=== PATIENT | female | born 1940 | race African-American/Black ===

== ENCOUNTER 2021-02-20 21:47 | Inpatient (IN) | payer MEDICARE, OTHER ==
[~2021-02-20] VITALS: Ht 165.1 cm; Wt 59.4 kg
--- NOTE | 2021-02-20 21:56 | PHYS DOC ---
General Adult HPI: HPI: Patient is a 80 year old female hypothyroid, hyperlipedimia, hypertension presents for evaluation of right sided abdominal pain and constipation. Patient with recent hospitalization for COVID at [facility]-- Admitted on Jan 31 and Discharged Feb 18. Patients hospitalization was complicated with Right abdominal wall hematoma. Family choose to have patient discharged home vs rehab. Daughter states since discharge patient is not as active and with decreased appetite. Daughter seem to be mainly concerned that patient has not had a bowel movement--- stating since Jan 31 patient has had only 1 BM and she is requesting patient to be "cleaned out" Patients only complains of right sided abdominal pain. She denies any chest pain or shortness of breath. Review of Systems: Review of Systems: Constitutional: Denies fever or chills. [] Eyes: Denies change in visual acuity. [] HENT: Denies nasal congestion or sore throat. [] Respiratory: Denies cough or shortness of breath. [] Cardiovascular: Denies chest pain or edema. [] GI: positive abdominal pain, positive constipation denies nausea, vomiting, bloody stools or diarrhea. [] : Denies dysuria. [] Musculoskeletal: Denies back pain or joint pain. [] Integument: Denies rash. [] Neurologic: Denies headache, focal weakness or sensory changes. []positive generalized weakness Endocrine: Denies polyuria or polydipsia. [] Lymphatic: Denies swollen glands. [] Psychiatric: Denies depression or anxiety. [] Heart Score: C/O Chest Pain: N/A Risk Factors: Risk Factors: DM, Current or recent (<one month) smoker, HTN, HLP, family history of CAD, obesity. Risk Scores: Score 0 - 3: 2.5% MACE over next 6 weeks - Discharge Home Score 4 - 6: 20.3% MACE over next 6 weeks - Admit for Clinical Observation Score 7 - 10: 72.7% MACE over next 6 weeks - Early Invasive Strategies Physical Exam: PE: Constitutional: Well developed, well nourished, no acute distress, non-toxic appearance. [] HENT: Normocephalic, atraumatic, bilateral external ears normal, oropharynx moist, no oral exudates, nose normal. [] Eyes: PERRLA, EOMI, conjunctiva normal, no discharge. [] Neck: Normal range of motion, no tenderness, supple, no stridor. [] Cardiovascular:Heart rate regular rhythm, no murmur [] Lungs & Thorax: Bilateral breath sounds clear to auscultation [] Abdomen: Bowel sounds normal, soft, tenderness to palpation left abdomen Skin: Warm, dry, no erythema, no rash. [] Back: No tenderness, no CVA tenderness. [] Extremities: No tenderness, no cyanosis, no clubbing, ROM intact, no edema. [] Neurologic: Alert and oriented X 3, normal motor function, normal sensory function, no focal deficits noted. [] Psychologic: Affect normal, judgement normal, mood normal. [] EKG: EKG: [] Performed at 2151 Rate [address] elevation No ST depression No acute OH Radiology/Procedures: Radiology/Procedures: [] Course & Med Decision Making: Course & Med Decision Making Pertinent Labs and Imaging studies reviewed. (See chart for details) []Discussed CT imaging with radiologist. Unsure if patients hematoma is getting larger. Requested medical charts from . Enema performed in ER-- nursing states patient had large BM. Will admit patient to hospital for further evaluation of hematoma. Marianne Disclaimer: Marianne Disclaimer: This electronic medical record was generated, in whole or in part, using a voice recognition dictation system. Departure Departure Impression: Primary Impression: Generalized weakness Additional Impressions: Abdominal pain Hematoma Constipation Disposition: ADMITTED INPATIENT Admitting Physician: PAULINA Condition: STABLE SOBEIDA GIL I DO Feb 20, 2021 21:56
[2021-02-20] MEDS ORDERED: IV NORMAL SALINE 1000ML BAG 1,000 ML IV ONE ×2 (23:30)
[2021-02-20 23:32] LABS: CALCIUM 8.2 mg/dL (8.5-10.1); GFR 64.9; POTASSIUM 3.6 mmol/L (3.5-5.1)
[2021-02-20 23:38] LABS: ALBUMIN 2.2 g/dL (3.4-5.0); ALBUMIN/GLOBULIN RATIO 0.5 (1.0-1.7); TOTAL BILIRUBIN 1.1 mg/dL (0.2-1.0); TOTAL PROTEIN 6.6 g/dL (6.4-8.2)
[2021-02-20] MEDS ORDERED: CONTRAST GIVEN. MC PRN (23:45)
[2021-02-20 23:50] LABS: BASO # 0.1 x10^3/uL (0.0-0.2); BASO % 1 % (0-3); EOS % 0 % (0-3); HEMATOCRIT 28.5 % (36.0-47.0); HEMOGLOBIN 9.2 g/dL (12.0-15.5); LYMPH # 0.6 x10^3/uL (1.0-4.8); LYMPH % 6 % (24-48); MEAN CORPUSCULAR HEMOGLOBIN 28 pg (25-35); MEAN CORPUSCULAR HGB CONC 32 g/dL (31-37); MEAN CORPUSCULAR VOLUME 88 fL (79-100); MONO # 0.5 x10^3/uL (0.0-1.1); MONO % 5 % (0-9); NEUT # 9.4 x10^3/uL (1.8-7.7); NEUT % 87 % (31-73); PLATELET COUNT 281 x10^3/uL (140-400); RED BLOOD COUNT 3.25 x10^6/uL (3.50-5.40); WHITE BLOOD COUNT 10.8 x10^3/uL (4.0-11.0)
[2021-02-21] MEDS ORDERED: IOHEXOL 300 MG/ML 100ML VIAL. IV ONE
--- NOTE | 2021-02-21 00:34 | RAD ---
EXAM: CT ABDOMEN/PELVIS WITH CONTRAST. HISTORY: Abdominal pain. TECHNIQUE: Computed tomography of the abdomen and pelvis was performed after the intravenous administ ration of iodinated contrast. One or more of the following individualized dose reduction techniques w ere utilized for this examination: 1. Automated exposure control. 2. Adjustment of the mA and/or kV according to patient size. 3. Use of iterative reconstruction technique. COMPARISON: None available. FINDINGS: Lung windows through the visualized portions of the bases reveal trace bilateral pleural ef fusions. A masslike opacity at the superior margin of the [id number]-dhzw along the left major fissure measures 3.3 x 1.9 cm and is concerning for neoplasm. There are mild interstitial infiltrates in the lung bases. Intralobular emphysema appears moderate. Bone windows reveal no suspicious lesions. No lumbar central canal stenosis is up to moderate/severe at L3-4. A small lipoma within the left external oblique musculature superiorly measures 4.2 x 1.3 cm . There is a large hematoma within the right lateral abdominal wall musculature, between the internal a nd external obliques. This spans 14 x 8 cm transaxially and 23 cm craniocaudally. A small amount of h emorrhage extends into a small right inguinal hernia. No clear active extravasation is seen. Multiple hepatic cysts measure up to 9.2 cm in the dome. The gallbladder, pancreas, adrenal glands an d spleen are unremarkable. Benign left renal cysts measure up to 3.4 cm. There is aneurysmal dilatation of the aorta at the hiatus at 8.7 x 3.5 cm. There is a small infrarena l abdominal aortic aneurysm at 3.0 cm. There are diffuse atherosclerotic calcifications. There is mul tifocal at least moderate stenosis within both common and external iliac arteries. The internal iliac arteries are also severely diseased. Stenosis appears moderate at the origin of the celiac axis. The superior mesenteric artery and inferior mesenteric artery are patent. There are no pathologically enlarged lymph nodes. A small left inguinal hernia contains only fat. Bon e constipation. The appendix is not inflamed. There is no small bowel obstruction. IMPRESSION: 1. Large hematoma within the right lateral abdominal wall musculature spanning 23 x 14 x 8 cm. No abhishek ar active extravasation. 2. A 3.3 cm masslike opacity at the superior margin of the lnjfw-tf-abkh in the left upper lobe may r eflect loculated fluid in the fissure or a mass. Comparison with prior CT of the chest is recommended to establish the diagnosis is not already known. 3. Moderate centrilobular emphysema. Trace bilateral pleural effusions. 4. 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 5. Small bilateral inguinal hernias as above. 6. Correlate for constipation. These findings were called to Dr. Bueno by Carlos Viramontes on 02/21/2021 at 12:20 AM. Electronically signed by: Timothy Viramontes MD (02/21/2021 12:32 AM) [facility]
[2021-02-21 02:45] LABS: BILIRUBIN,URINE NEGATIVE (NEG); CLARITY,URINE CLEAR; COLOR,URINE YELLOW; NITRITE,URINE NEGATIVE (NEG); PROTEIN,URINE NEGATIVE (NEG-TRACE)
[2021-02-21 03:03] LABS: BACTERIA,URINE FEW /HPF (0-FEW)
[2021-02-21 04:30] VITALS: BP 148/71
[2021-02-21 07:00] VITALS: BP 129/74
--- NOTE | 2021-02-21 08:44 | PDOC1 ---
History and Physical Date of Service: DOS: DATE: 02/21/21 TIME: 08:28 Chief Complaint: Chief Complain: Generalized weakness and abdominal pain History of Present Illness: HPI: History obtained from discussion with the ED physician: 80 year old female hypothyroid, hyperlipedimia, hypertension presents for evaluation of right sided abdominal pain and constipation. Patient with recent hospitalization for COVID at [facility]-- Admitted on Jan 31 and Discharged Feb 18. Patients hospitalization was complicated with Right abdominal wall hematoma. Family choose to have patient discharged home vs rehab. Daughter states since discharge patient is not as active and with decreased appetite. Daughter seem to be mainly concerned that patient has not had a bowel movement--- stating since Jan 31 patient has had only 1 BM and she is requesting patient to be "cleaned out" Patients only complains of right sided abdominal pain. She denies any chest pain or shortness of breath. At the time of my evaluation, patient was unable to provide much history or reasons why she is at the hospital and why she was at . I attempted to call the daughter Whitney Sneed, phone number [phone] without any success. Past Medical/Surgical History: PMH/PSH: Limited due to patient's cognitive impairment Allergies: Allergies: Coded Allergies: No Known Drug Allergies (Unverified , 02/20/21) Family History: Family History: Limited due to patient's cognitive impairment Social History: Social History: Limited due to patient's cognitive impairment Current Medications: Current Medications Current Medications Sodium Chloride 1,000 ml @ 1,000 mls/hr 1X ONCE IV Last administered on 02/20/21at 23:08; Start 02/20/21 at 23:30; Stop 02/21/21 at 00:29; Status DC Sodium Chloride 1,000 ml @ 1,000 mls/hr 1X ONCE IV ; Start 02/20/21 at 23:30; Stop 02/21/21 at 00:29; Status DC Iohexol (Omnipaque 300 Mg/ml) 75 ml 1X ONCE IV Last administered on 02/20/21at 23:46; Start 02/21/21 at 00:00; Stop 02/21/21 at 00:01; Status DC Info (CONTRAST GIVEN -- Rx MONITORING) 1 each PRN DAILY PRN MC SEE COMMENTS; Start 02/20/21 at 23:45; Stop 02/22/21 at 23:44 ROS: Review of Systems Review of System REVIEW OF SYSTEMS: GENERAL: Positive for generalized weakness SKIN: No bruising, hair changes or rashes. EYES: No blurred, double or loss of vision. NOSE AND THROAT: No history of nosebleeds, hoarseness or sore throat. HEART: No history of palpitations, chest pain or shortness of breath on exertion. LUNGS: Denies cough, hemoptysis, wheezing or shortness of breath. GASTROINTESTINAL: Positive for abdominal pain GENITOURINARY: No history of frequency, urgency, hesitancy or nocturia. NEUROLOGIC: Denies history of numbness, tingling, or tremor. PSYCHIATRIC: No history of panic, anxiety or depression. ENDOCRINE: No history of heat or cold intolerance, polyuria or polydipsia. EXTREMITIES: Denies joint pain, pain on walking or stiffness. Physical Exam: Vital Signs: Vital Signs Date Time Temp Pulse Resp B/P (MAP) Pulse Ox O2 Delivery O2 Flow Rate FiO2 02/21/21 07:00 97.8 82 17 129/74 (92) 95 Room Air 97.8 Physcial Exam: General: Well developed, well nourished, no acute distress, well appearing HEENT: Pupils equally round and reactive to light, EOMI, no discharge, normal conjunctiva Neck: Supple, no nuchal rigidity, no JVD, trachea midline, no tenderness Cardiac: RRR, no murmurs, no gallops, no rubs Chest/Lungs: CTAB, no wheeze, no rhonchi, no crackles Abdomen: soft, non-distended, no guarding, no peritoneal signs, non-tender Back: No tenderness Extremities: no edema, pulses intact, non-tender,capillary refill <3 sec bilateral upper and lower extremities, Neuro: Alert and oriented x 4, no focal deficits, normal speech Labs: Labs: Laboratory Tests Test 02/20/21 22:50 02/20/21 23:30 02/21/21 02:30 Sodium Level 141 mmol/L (136-145) Potassium Level 3.6 mmol/L (3.5-5.1) Chloride Level 108 mmol/L (98-107) Carbon Dioxide Level 24 mmol/L (21-32) Anion Gap 9 (6-14) Blood Urea Nitrogen 11 mg/dL (7-20) Creatinine 1.0 mg/dL (0.6-1.0) Estimated GFR (Cockcroft-Gault) 64.9 BUN/Creatinine Ratio 11 (6-20) Glucose Level 112 mg/dL (70-99) Calcium Level 8.2 mg/dL (8.5-10.1) Total Bilirubin 1.1 mg/dL (0.2-1.0) Aspartate Amino Transf (AST/SGOT) 33 U/L (15-37) Alanine Aminotransferase (ALT/SGPT) 28 U/L (14-59) Alkaline Phosphatase 80 U/L (46-116) Total Protein 6.6 g/dL (6.4-8.2) Albumin 2.2 g/dL (3.4-5.0) Albumin/Globulin Ratio 0.5 (1.0-1.7) Lipase 178 U/L (73-393) White Blood Count 10.8 x10^3/uL (4.0-11.0) Red Blood Count 3.25 x10^6/uL (3.50-5.40) Hemoglobin 9.2 g/dL (12.0-15.5) Hematocrit 28.5 % (36.0-47.0) Mean Corpuscular Volume 88 fL (79-100) Mean Corpuscular Hemoglobin 28 pg (25-35) Mean Corpuscular Hemoglobin Concent 32 g/dL (31-37) Red Cell Distribution Width 19.0 % (11.5-14.5) Platelet Count 281 x10^3/uL (140-400) Neutrophils (%) (Auto) 87 % (31-73) Lymphocytes (%) (Auto) 6 % (24-48) Monocytes (%) (Auto) 5 % (0-9) Eosinophils (%) (Auto) 0 % (0-3) Basophils (%) (Auto) 1 % (0-3) Neutrophils # (Auto) 9.4 x10^3/uL (1.8-7.7) Lymphocytes # (Auto) 0.6 x10^3/uL (1.0-4.8) Monocytes # (Auto) 0.5 x10^3/uL (0.0-1.1) Eosinophils # (Auto) 0.0 x10^3/uL (0.0-0.7) Basophils # (Auto) 0.1 x10^3/uL (0.0-0.2) Urine Collection Type U cath Urine Color Yellow Urine Clarity Clear Urine pH 5.0 (<5.0-8.0) Urine Specific [place] >=1.030 (1.000-1.030) Urine Protein Negative mg/dL (NEG-TRACE) Urine Glucose (UA) Negative mg/dL (NEG) Urine Ketones (Stick) Negative mg/dL (NEG) Urine Blood Negative (NEG) Urine Nitrite Negative (NEG) Urine Bilirubin Negative (NEG) Urine Urobilinogen Dipstick 1.0 mg/dL (0.2 mg/dL) Urine Leukocyte Esterase Negative (NEG) Urine RBC 1-2 /HPF (0-2) Urine WBC 1-4 /HPF (0-4) Urine Squamous Epithelial Cells Occ /LPF Urine Bacteria Few /HPF (0-FEW) Laboratory Tests Test 02/20/21 22:50 02/20/21 23:30 02/21/21 02:30 Sodium Level 141 mmol/L (136-145) Potassium Level 3.6 mmol/L (3.5-5.1) Chloride Level 108 mmol/L (98-107) Carbon Dioxide Level 24 mmol/L (21-32) Anion Gap 9 (6-14) Blood Urea Nitrogen 11 mg/dL (7-20) Creatinine 1.0 mg/dL (0.6-1.0) Estimated GFR (Cockcroft-Gault) 64.9 BUN/Creatinine Ratio 11 (6-20) Glucose Level 112 mg/dL (70-99) Calcium Level 8.2 mg/dL (8.5-10.1) Total Bilirubin 1.1 mg/dL (0.2-1.0) Aspartate Amino Transf (AST/SGOT) 33 U/L (15-37) Alanine Aminotransferase (ALT/SGPT) 28 U/L (14-59) Alkaline Phosphatase 80 U/L (46-116) Total Protein 6.6 g/dL (6.4-8.2) Albumin 2.2 g/dL (3.4-5.0) Albumin/Globulin Ratio 0.5 (1.0-1.7) Lipase 178 U/L (73-393) White Blood Count 10.8 x10^3/uL (4.0-11.0) Red Blood Count 3.25 x10^6/uL (3.50-5.40) Hemoglobin 9.2 g/dL (12.0-15.5) Hematocrit 28.5 % (36.0-47.0) Mean Corpuscular Volume 88 fL (79-100) Mean Corpuscular Hemoglobin 28 pg (25-35) Mean Corpuscular Hemoglobin Concent 32 g/dL (31-37) Red Cell Distribution Width 19.0 % (11.5-14.5) Platelet Count 281 x10^3/uL (140-400) Neutrophils (%) (Auto) 87 % (31-73) Lymphocytes (%) (Auto) 6 % (24-48) Monocytes (%) (Auto) 5 % (0-9) Eosinophils (%) (Auto) 0 % (0-3) Basophils (%) (Auto) 1 % (0-3) Neutrophils # (Auto) 9.4 x10^3/uL (1.8-7.7) Lymphocytes # (Auto) 0.6 x10^3/uL (1.0-4.8) Monocytes # (Auto) 0.5 x10^3/uL (0.0-1.1) Eosinophils # (Auto) 0.0 x10^3/uL (0.0-0.7) Basophils # (Auto) 0.1 x10^3/uL (0.0-0.2) Urine Collection Type U cath Urine Color Yellow Urine Clarity Clear Urine pH 5.0 (<5.0-8.0) Urine Specific [place] >=1.030 (1.000-1.030) Urine Protein Negative mg/dL (NEG-TRACE) Urine Glucose (UA) Negative mg/dL (NEG) Urine Ketones (Stick) Negative mg/dL (NEG) Urine Blood Negative (NEG) Urine Nitrite Negative (NEG) Urine Bilirubin Negative (NEG) Urine Urobilinogen Dipstick 1.0 mg/dL (0.2 mg/dL) Urine Leukocyte Esterase Negative (NEG) Urine RBC 1-2 /HPF (0-2) Urine WBC 1-4 /HPF (0-4) Urine Squamous Epithelial Cells Occ /LPF Urine Bacteria Few /HPF (0-FEW) Images: Images PROCEDURE: CT ABD PELV W/ IV CONTRST ONLY IMPRESSION: 1. Large hematoma within the right lateral abdominal wall musculature spanning 23 x 14 x 8 cm. No clear active extravasation. 2. A 3.3 cm masslike opacity at the superior margin of the kqgrv-jk-oltc in the left upper lobe may reflect loculated fluid in the fissure or a mass. Comparison with prior CT of the chest is recommended to establish the diagnosis is not already known. 3. Moderate centrilobular emphysema. Trace bilateral pleural effusions. 4. 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 5. Small bilateral inguinal hernias as above. 6. Correlate for constipation. Assessment/Plan Assessment/Plan Generalized weakness Constipation Large hematoma within the right lateral abdominal wall musculature spanning 23 x 14 x 8 cm. No clear active extravasation. A 3.3 cm masslike opacity at the superior margin of the htkxy-qp-wisa in the left upper lobe may reflect loculated fluid in the fissure or a mass. Moderate centrilobular emphysema. Trace bilateral pleural effusions. Multiple hepatic cysts Admit to hospitalist service for further management Start bowel regimen PT OT modalities General surgery consult for abdominal wall hematoma Obtain [facility] records DuoNebs as needed if there is dyspnea or hypoxia Hold for DVT prophylaxis Protonix GI prophylaxis ADA diet CODE STATUS full Discussed with RN and SW Disposition inpatient management as above DPOA: Daughter, Whitney Sneed Justifications for Admission Other Justification HAN JANSEN MD Feb 21, 2021 08:44
[2021-02-21] MEDS ORDERED: ONDANSETRON PF 4 MG/2 ML VIAL. IVP PRN (08:45)
[2021-02-21] MEDS ORDERED: DEXTROSE 50% 25 GM / 50ML DISP.SYRIN. IV PRN (08:45)
[2021-02-21] MEDS ORDERED: MORPHINE SULFATE 2 MG/ML INJ. IVP PRN (08:45)
[2021-02-21] MEDS ORDERED: ACETAMINOPHEN 325 MG TABLET. PO PRN (08:45)
[2021-02-21] MEDS ORDERED: DOCUSATE SODIUM 100 MG CAPSULE. PO PRN (08:45)
[2021-02-21] MEDS ORDERED: MORPHINE SULFATE 2 MG/ML INJ. IV PRN (08:45)
[2021-02-21] MEDS ORDERED: PROCHLORPERAZINE 10 MG/2 ML VIAL. IV PRN (08:45)
[2021-02-21] MEDS ORDERED: SENNOSIDES 8.6 MG TABLET PO PRN (08:45)
[2021-02-21] MEDS: PANTOPRAZOLE IV PUSH 40 MG VIAL. IVP SCH (10:34)
[2021-02-21] MEDS: POLYETHYLENE GLYCOL 3350 17 GM PACKET. PO SCH ×3 (10:34→22:44)
[2021-02-21 11:00] VITALS: BP 124/72
--- NOTE | 2021-02-21 11:14 | PDOC2 ---
KAT VINSON [employer]URE ARCHITECT 02/21/21 1114: CONSULT Date of Consult Date of Consult DATE: 02/21/21 TIME: 11:05 Reason for Consult Reason for Consult: abdominal wall hematoma Referring Physician Referring Physician: ER Identification/Chief Complaint Chief Complaint abdominal pain Source Source: Chart review, Patient History of Present Illness Reason for Visit: Abdominal pain, poor historian Recent admission at for covid, developed hematoma while admitted was discharged and home with on Feb 18 issues with constipation, no n/v Past Medical History Cardiovascular: HTN, Hyperlipidemia Endocrine: Hypothyroidism Past Surgical History Past Surgical History unknown Family History Family History: Family History Unknown Social History <1 pack per day ALCOHOL: occassional Current Problem List Problem List Problems Medical Problems: (1) Abdominal pain Status: Acute (2) Constipation Status: Acute (3) Generalized weakness Status: Acute (4) Hematoma Status: Acute Current Medications Current Medications Current Medications Sodium Chloride 1,000 ml @ 1,000 mls/hr 1X ONCE IV Last administered on 02/20/21at 23:08; Start 02/20/21 at 23:30; Stop 02/21/21 at 00:29; Status DC Sodium Chloride 1,000 ml @ 1,000 mls/hr 1X ONCE IV ; Start 02/20/21 at 23:30; Stop 02/21/21 at 00:29; Status DC Iohexol (Omnipaque 300 Mg/ml) 75 ml 1X ONCE IV Last administered on 02/20/21at 23:46; Start 02/21/21 at 00:00; Stop 02/21/21 at 00:01; Status DC Info (CONTRAST GIVEN -- Rx MONITORING) 1 each PRN DAILY PRN MC SEE COMMENTS; Start 02/20/21 at 23:45; Stop 02/22/21 at 23:44 Sennosides (Senna) 17.2 mg PRN BID PRN PO CONSTIPATION; Start 02/21/21 at 08:45 Docusate Sodium (Colace) 100 mg PRN DAILY PRN PO HARD STOOLS; Start 02/21/21 at 08:45 Ondansetron HCl (Zofran) 4 mg PRN Q6HRS PRN IVP NAUSEA/VOMITING; Start 02/21/21 at 08:45 Dextrose (Dextrose 50%-Water Syringe) 12.5 gm PRN Q15MIN PRN IV SEE COMMENTS; Start 02/21/21 at 08:45 Acetaminophen (Tylenol) 650 mg PRN Q4HRS PRN PO TEMP OVER 100.4F OR MILD PAIN; Start 02/21/21 at 08:45 Pantoprazole Sodium (PROTONIX VIAL for IV PUSH) 40 mg DAILYAC IVP Last administered on 02/21/21at 10:34; Start 02/21/21 at 09:00 Oxycodone/ Acetaminophen (Percocet 5/325) 1 tab PRN Q4HRS PRN PO MILD PAIN, 1ST CHOICE; Start 02/21/21 at 08:45 Morphine Sulfate (Morphine Sulfate) 1 mg PRN Q1HR PRN IV PAIN-SEE COMMENTS; Start 02/21/21 at 08:45 Morphine Sulfate (Morphine Sulfate) 2 mg PRN Q2HR PRN IVP SEVERE PAIN 7-10; Start 02/21/21 at 08:45; Stop 02/22/21 at 08:44 Prochlorperazine Edisylate (Compazine) 10 mg PRN Q6HRS PRN IV NAUSEA/VOMITING; Start 02/21/21 at 08:45 Polyethylene Glycol (miraLAX PACKET) 17 gm Q6HRS PO Last administered on 02/21/21at 10:34; Start 02/21/21 at 09:00 Allergies Allergies: Coded Allergies: No Known Drug Allergies (Unverified , 02/20/21) ROS General: No: Chills, Other (fevers ) PSYCHOLOGICAL ROS: No: Anxiety, Depression Eyes: No Blurry vision, No Double vision HEENT: No: Heacaches, Epistaxis Hematological and Lymphatic: YES: Bleeding Problems; No: Blood Clots Respiratory: No: Cough, Shortness of breath Cardiovascular: No Chest Pain, No Palpitations Gastrointestinal: Yes Other (see hpi) Genitourinary: No Dysuria, No Retention Musculoskeletal: No Joint Pain, No Muscle Pain Neurological: No Confusion, No Numbness/Tingling Skin: No Pruritus, No Rash Physical Exam General: Cooperative, No acute distress, Other (some confusion ) HEENT: Atraumatic, PERRLA Lungs: Clear to auscultation, Normal air movement Heart: Regular rate, Normal S1, Normal S2 Abdomen: Soft, Other (TTP Right abdomen ) Extremities: No clubbing, No cyanosis Skin: No rashes, No breakdown Neuro: Normal speech, Sensation intact Vitals VITALS Vital Signs Date Time Temp Pulse Resp B/P (MAP) Pulse Ox O2 Delivery O2 Flow Rate FiO2 02/21/21 07:00 97.8 82 17 129/74 (92) 95 Room Air 97.8 Labs Labs Laboratory Tests Test 02/20/21 22:50 02/20/21 23:30 02/21/21 02:30 Sodium Level 141 mmol/L (136-145) Potassium Level 3.6 mmol/L (3.5-5.1) Chloride Level 108 mmol/L (98-107) Carbon Dioxide Level 24 mmol/L (21-32) Anion Gap 9 (6-14) Blood Urea Nitrogen 11 mg/dL (7-20) Creatinine 1.0 mg/dL (0.6-1.0) Estimated GFR (Cockcroft-Gault) 64.9 BUN/Creatinine Ratio 11 (6-20) Glucose Level 112 mg/dL (70-99) Calcium Level 8.2 mg/dL (8.5-10.1) Total Bilirubin 1.1 mg/dL (0.2-1.0) Aspartate Amino Transf (AST/SGOT) 33 U/L (15-37) Alanine Aminotransferase (ALT/SGPT) 28 U/L (14-59) Alkaline Phosphatase 80 U/L (46-116) Total Protein 6.6 g/dL (6.4-8.2) Albumin 2.2 g/dL (3.4-5.0) Albumin/Globulin Ratio 0.5 (1.0-1.7) Lipase 178 U/L (73-393) White Blood Count 10.8 x10^3/uL (4.0-11.0) Red Blood Count 3.25 x10^6/uL (3.50-5.40) Hemoglobin 9.2 g/dL (12.0-15.5) Hematocrit 28.5 % (36.0-47.0) Mean Corpuscular Volume 88 fL (79-100) Mean Corpuscular Hemoglobin 28 pg (25-35) Mean Corpuscular Hemoglobin Concent 32 g/dL (31-37) Red Cell Distribution Width 19.0 % (11.5-14.5) Platelet Count 281 x10^3/uL (140-400) Neutrophils (%) (Auto) 87 % (31-73) Lymphocytes (%) (Auto) 6 % (24-48) Monocytes (%) (Auto) 5 % (0-9) Eosinophils (%) (Auto) 0 % (0-3) Basophils (%) (Auto) 1 % (0-3) Neutrophils # (Auto) 9.4 x10^3/uL (1.8-7.7) Lymphocytes # (Auto) 0.6 x10^3/uL (1.0-4.8) Monocytes # (Auto) 0.5 x10^3/uL (0.0-1.1) Eosinophils # (Auto) 0.0 x10^3/uL (0.0-0.7) Basophils # (Auto) 0.1 x10^3/uL (0.0-0.2) Urine Collection Type U cath Urine Color Yellow Urine Clarity Clear Urine pH 5.0 (<5.0-8.0) Urine Specific [place] >=1.030 (1.000-1.030) Urine Protein Negative mg/dL (NEG-TRACE) Urine Glucose (UA) Negative mg/dL (NEG) Urine Ketones (Stick) Negative mg/dL (NEG) Urine Blood Negative (NEG) Urine Nitrite Negative (NEG) Urine Bilirubin Negative (NEG) Urine Urobilinogen Dipstick 1.0 mg/dL (0.2 mg/dL) Urine Leukocyte Esterase Negative (NEG) Urine RBC 1-2 /HPF (0-2) Urine WBC 1-4 /HPF (0-4) Urine Squamous Epithelial Cells Occ /LPF Urine Bacteria Few /HPF (0-FEW) Laboratory Tests Test 02/20/21 22:50 02/20/21 23:30 02/21/21 02:30 Sodium Level 141 mmol/L (136-145) Potassium Level 3.6 mmol/L (3.5-5.1) Chloride Level 108 mmol/L (98-107) Carbon Dioxide Level 24 mmol/L (21-32) Anion Gap 9 (6-14) Blood Urea Nitrogen 11 mg/dL (7-20) Creatinine 1.0 mg/dL (0.6-1.0) Estimated GFR (Cockcroft-Gault) 64.9 BUN/Creatinine Ratio 11 (6-20) Glucose Level 112 mg/dL (70-99) Calcium Level 8.2 mg/dL (8.5-10.1) Total Bilirubin 1.1 mg/dL (0.2-1.0) Aspartate Amino Transf (AST/SGOT) 33 U/L (15-37) Alanine Aminotransferase (ALT/SGPT) 28 U/L (14-59) Alkaline Phosphatase 80 U/L (46-116) Total Protein 6.6 g/dL (6.4-8.2) Albumin 2.2 g/dL (3.4-5.0) Albumin/Globulin Ratio 0.5 (1.0-1.7) Lipase 178 U/L (73-393) White Blood Count 10.8 x10^3/uL (4.0-11.0) Red Blood Count 3.25 x10^6/uL (3.50-5.40) Hemoglobin 9.2 g/dL (12.0-15.5) Hematocrit 28.5 % (36.0-47.0) Mean Corpuscular Volume 88 fL (79-100) Mean Corpuscular Hemoglobin 28 pg (25-35) Mean Corpuscular Hemoglobin Concent 32 g/dL (31-37) Red Cell Distribution Width 19.0 % (11.5-14.5) Platelet Count 281 x10^3/uL (140-400) Neutrophils (%) (Auto) 87 % (31-73) Lymphocytes (%) (Auto) 6 % (24-48) Monocytes (%) (Auto) 5 % (0-9) Eosinophils (%) (Auto) 0 % (0-3) Basophils (%) (Auto) 1 % (0-3) Neutrophils # (Auto) 9.4 x10^3/uL (1.8-7.7) Lymphocytes # (Auto) 0.6 x10^3/uL (1.0-4.8) Monocytes # (Auto) 0.5 x10^3/uL (0.0-1.1) Eosinophils # (Auto) 0.0 x10^3/uL (0.0-0.7) Basophils # (Auto) 0.1 x10^3/uL (0.0-0.2) Urine Collection Type U cath Urine Color Yellow Urine Clarity Clear Urine pH 5.0 (<5.0-8.0) Urine Specific [place] >=1.030 (1.000-1.030) Urine Protein Negative mg/dL (NEG-TRACE) Urine Glucose (UA) Negative mg/dL (NEG) Urine Ketones (Stick) Negative mg/dL (NEG) Urine Blood Negative (NEG) Urine Nitrite Negative (NEG) Urine Bilirubin Negative (NEG) Urine Urobilinogen Dipstick 1.0 mg/dL (0.2 mg/dL) Urine Leukocyte Esterase Negative (NEG) Urine RBC 1-2 /HPF (0-2) Urine WBC 1-4 /HPF (0-4) Urine Squamous Epithelial Cells Occ /LPF Urine Bacteria Few /HPF (0-FEW) Assessment/Plan Assessment/Plan Large abdominal hematoma no signs of extravasation hgb stable would be beneficial to get records from [facility] will also check INR SHARYN TRAN MD 02/22/21 1047: CONSULT Assessment/Plan Assessment/Plan Agree with above, check coags KAT VINSON APRN Feb 21, 2021 11:14 SHARYN TRAN MD Feb 22, 2021 10:47
--- NOTE | 2021-02-21 13:02 | NUR ---
SW following. Discussed with RN, pt from home, room air, regular diet. Surgery following. RN advised no SW needs at this time. SW will continue to follow.
[2021-02-21 15:00] VITALS: BP 140/79
[2021-02-21 19:00] VITALS: BP 140/69
[2021-02-21] MEDS: oxyCODONE/APAP 5/325 1 TAB TABLET PO PRN (19:59)
[2021-02-21 23:05] VITALS: BP 159/67
[2021-02-22 02:27] VITALS: BP 151/69
[2021-02-22] MEDS: POLYETHYLENE GLYCOL 3350 17 GM PACKET. PO SCH ×3 (04:45→18:33)
[2021-02-22] MEDS: PANTOPRAZOLE IV PUSH 40 MG VIAL. IVP SCH (04:45)
[2021-02-22 07:00] VITALS: BP 159/92
[2021-02-22 07:25] LABS: BASO % 0 % (0-3); EOS # 0.1 x10^3/uL (0.0-0.7); EOS % 1 % (0-3); HEMATOCRIT 27.8 % (36.0-47.0); HEMOGLOBIN 8.9 g/dL (12.0-15.5); LYMPH # 0.7 x10^3/uL (1.0-4.8); LYMPH % 8 % (24-48); MEAN CORPUSCULAR HEMOGLOBIN 28 pg (25-35); MEAN CORPUSCULAR HGB CONC 32 g/dL (31-37); MEAN CORPUSCULAR VOLUME 89 fL (79-100); MONO # 0.5 x10^3/uL (0.0-1.1); MONO % 6 % (0-9); NEUT # 7.3 x10^3/uL (1.8-7.7); NEUT % 85 % (31-73); PLATELET COUNT 252 x10^3/uL (140-400); RED BLOOD COUNT 3.14 x10^6/uL (3.50-5.40); RED CELL DISTRIBUTION WIDTH 19.8 % (11.5-14.5); WHITE BLOOD COUNT 8.6 x10^3/uL (4.0-11.0)
[2021-02-22 07:43] LABS: CALCIUM 8.1 mg/dL (8.5-10.1); CREATININE 0.8 mg/dL (0.6-1.0); GFR 83.9; MAGNESIUM 2.1 mg/dL (1.8-2.4); PHOSPHORUS 2.6 mg/dL (2.6-4.7); POTASSIUM 3.1 mmol/L (3.5-5.1)
[2021-02-22] MEDS ORDERED: POTASSIUM CHLORIDE 20 MEQ TABLET.ER. PO ONE (09:30)
[2021-02-22 11:00] VITALS: BP 128/78
--- NOTE | 2021-02-22 11:28 | PDOC ---
PROGRESS NOTES Date of Service DATE: 02/22/21 TIME: 11:26 Subjective Subjective pt alert, says she is "ok", unable to provide more information Objective Objective Vital Signs Date Time Temp Pulse Resp B/P (MAP) Pulse Ox O2 Delivery O2 Flow Rate FiO2 02/22/21 07:00 97.3 78 18 159/92 (114) 94 Room Air 97.3 Intake and Output 02/22/21 07:00 Intake Total 720 ml Balance 720 ml Intake Oral 720 ml # Voids 6 Physical Exam Abdomen: Soft (large palpable hematoma right abdomen, tender with palpation) Heart: Regular rate Extremities: No clubbing, No cyanosis General: Alert Assessment Assessment Problems Medical Problems: (1) Abdominal pain Status: Acute (2) Constipation Status: Acute (3) Generalized weakness Status: Acute (4) Hematoma Status: Acute Plan Plan of Care Large R abdominal wall hematoma, etiology remains unclear; no extravasation on CT scan, Hb appears stable; generally will resolve with time and surgery not recommended if no active bleeding Comment Review of Relevant I have reviewed the following items rehan (where applicable) has been applied. Labs Laboratory Tests Test 02/20/21 22:50 02/20/21 23:30 02/21/21 02:30 02/21/21 12:50 Sodium Level 141 mmol/L (136-145) Potassium Level 3.6 mmol/L (3.5-5.1) Chloride Level 108 mmol/L (98-107) Carbon Dioxide Level 24 mmol/L (21-32) Anion Gap 9 (6-14) Blood Urea Nitrogen 11 mg/dL (7-20) Creatinine 1.0 mg/dL (0.6-1.0) Estimated GFR (Cockcroft-Gault) 64.9 BUN/Creatinine Ratio 11 (6-20) Glucose Level 112 mg/dL (70-99) Calcium Level 8.2 mg/dL (8.5-10.1) Total Bilirubin 1.1 mg/dL (0.2-1.0) Aspartate Amino Transf (AST/SGOT) 33 U/L (15-37) Alanine Aminotransferase (ALT/SGPT) 28 U/L (14-59) Alkaline Phosphatase 80 U/L (46-116) Total Protein 6.6 g/dL (6.4-8.2) Albumin 2.2 g/dL (3.4-5.0) Albumin/Globulin Ratio 0.5 (1.0-1.7) Lipase 178 U/L (73-393) White Blood Count 10.8 x10^3/uL (4.0-11.0) Red Blood Count 3.25 x10^6/uL (3.50-5.40) Hemoglobin 9.2 g/dL (12.0-15.5) Hematocrit 28.5 % (36.0-47.0) Mean Corpuscular Volume 88 fL (79-100) Mean Corpuscular Hemoglobin 28 pg (25-35) Mean Corpuscular Hemoglobin Concent 32 g/dL (31-37) Red Cell Distribution Width 19.0 % (11.5-14.5) Platelet Count 281 x10^3/uL (140-400) Neutrophils (%) (Auto) 87 % (31-73) Lymphocytes (%) (Auto) 6 % (24-48) Monocytes (%) (Auto) 5 % (0-9) Eosinophils (%) (Auto) 0 % (0-3) Basophils (%) (Auto) 1 % (0-3) Neutrophils # (Auto) 9.4 x10^3/uL (1.8-7.7) Lymphocytes # (Auto) 0.6 x10^3/uL (1.0-4.8) Monocytes # (Auto) 0.5 x10^3/uL (0.0-1.1) Eosinophils # (Auto) 0.0 x10^3/uL (0.0-0.7) Basophils # (Auto) 0.1 x10^3/uL (0.0-0.2) Urine Collection Type U cath Urine Color Yellow Urine Clarity Clear Urine pH 5.0 (<5.0-8.0) Urine Specific [place] >=1.030 (1.000-1.030) Urine Protein Negative mg/dL (NEG-TRACE) Urine Glucose (UA) Negative mg/dL (NEG) Urine Ketones (Stick) Negative mg/dL (NEG) Urine Blood Negative (NEG) Urine Nitrite Negative (NEG) Urine Bilirubin Negative (NEG) Urine Urobilinogen Dipstick 1.0 mg/dL (0.2 mg/dL) Urine Leukocyte Esterase Negative (NEG) Urine RBC 1-2 /HPF (0-2) Urine WBC 1-4 /HPF (0-4) Urine Squamous Epithelial Cells Occ /LPF Urine Bacteria Few /HPF (0-FEW) Prothrombin Time 13.0 SEC (11.7-14.0) Prothromb Time International Ratio 1.0 (0.8-1.1) Test 02/22/21 06:20 02/22/21 06:30 White Blood Count 8.6 x10^3/uL (4.0-11.0) Red Blood Count 3.14 x10^6/uL (3.50-5.40) Hemoglobin 8.9 g/dL (12.0-15.5) Hematocrit 27.8 % (36.0-47.0) Mean Corpuscular Volume 89 fL (79-100) Mean Corpuscular Hemoglobin 28 pg (25-35) Mean Corpuscular Hemoglobin Concent 32 g/dL (31-37) Red Cell Distribution Width 19.8 % (11.5-14.5) Platelet Count 252 x10^3/uL (140-400) Neutrophils (%) (Auto) 85 % (31-73) Lymphocytes (%) (Auto) 8 % (24-48) Monocytes (%) (Auto) 6 % (0-9) Eosinophils (%) (Auto) 1 % (0-3) Basophils (%) (Auto) 0 % (0-3) Neutrophils # (Auto) 7.3 x10^3/uL (1.8-7.7) Lymphocytes # (Auto) 0.7 x10^3/uL (1.0-4.8) Monocytes # (Auto) 0.5 x10^3/uL (0.0-1.1) Eosinophils # (Auto) 0.1 x10^3/uL (0.0-0.7) Basophils # (Auto) 0.0 x10^3/uL (0.0-0.2) Sodium Level 143 mmol/L (136-145) Potassium Level 3.1 mmol/L (3.5-5.1) Chloride Level 108 mmol/L (98-107) Carbon Dioxide Level 28 mmol/L (21-32) Anion Gap 7 (6-14) Blood Urea Nitrogen 8 mg/dL (7-20) Creatinine 0.8 mg/dL (0.6-1.0) Estimated GFR (Cockcroft-Gault) 83.9 Glucose Level 70 mg/dL (70-99) Calcium Level 8.1 mg/dL (8.5-10.1) Phosphorus Level 2.6 mg/dL (2.6-4.7) Magnesium Level 2.1 mg/dL (1.8-2.4) Laboratory Tests Test 02/21/21 12:50 02/22/21 06:20 02/22/21 06:30 Prothrombin Time 13.0 SEC (11.7-14.0) Prothromb Time International Ratio 1.0 (0.8-1.1) White Blood Count 8.6 x10^3/uL (4.0-11.0) Red Blood Count 3.14 x10^6/uL (3.50-5.40) Hemoglobin 8.9 g/dL (12.0-15.5) Hematocrit 27.8 % (36.0-47.0) Mean Corpuscular Volume 89 fL (79-100) Mean Corpuscular Hemoglobin 28 pg (25-35) Mean Corpuscular Hemoglobin Concent 32 g/dL (31-37) Red Cell Distribution Width 19.8 % (11.5-14.5) Platelet Count 252 x10^3/uL (140-400) Neutrophils (%) (Auto) 85 % (31-73) Lymphocytes (%) (Auto) 8 % (24-48) Monocytes (%) (Auto) 6 % (0-9) Eosinophils (%) (Auto) 1 % (0-3) Basophils (%) (Auto) 0 % (0-3) Neutrophils # (Auto) 7.3 x10^3/uL (1.8-7.7) Lymphocytes # (Auto) 0.7 x10^3/uL (1.0-4.8) Monocytes # (Auto) 0.5 x10^3/uL (0.0-1.1) Eosinophils # (Auto) 0.1 x10^3/uL (0.0-0.7) Basophils # (Auto) 0.0 x10^3/uL (0.0-0.2) Sodium Level 143 mmol/L (136-145) Potassium Level 3.1 mmol/L (3.5-5.1) Chloride Level 108 mmol/L (98-107) Carbon Dioxide Level 28 mmol/L (21-32) Anion Gap 7 (6-14) Blood Urea Nitrogen 8 mg/dL (7-20) Creatinine 0.8 mg/dL (0.6-1.0) Estimated GFR (Cockcroft-Gault) 83.9 Glucose Level 70 mg/dL (70-99) Calcium Level 8.1 mg/dL (8.5-10.1) Phosphorus Level 2.6 mg/dL (2.6-4.7) Magnesium Level 2.1 mg/dL (1.8-2.4) Medications Current Medications Sodium Chloride 1,000 ml @ 1,000 mls/hr 1X ONCE IV Last administered on 02/20/21at 23:08; Start 02/20/21 at 23:30; Stop 02/21/21 at 00:29; Status DC Sodium Chloride 1,000 ml @ 1,000 mls/hr 1X ONCE IV ; Start 02/20/21 at 23:30; Stop 02/21/21 at 00:29; Status DC Iohexol (Omnipaque 300 Mg/ml) 75 ml 1X ONCE IV Last administered on 02/20/21at 23:46; Start 02/21/21 at 00:00; Stop 02/21/21 at 00:01; Status DC Info (CONTRAST GIVEN -- Rx MONITORING) 1 each PRN DAILY PRN MC SEE COMMENTS; Start 02/20/21 at 23:45; Stop 02/22/21 at 23:44 Sennosides (Senna) 17.2 mg PRN BID PRN PO CONSTIPATION; Start 02/21/21 at 08:45 Docusate Sodium (Colace) 100 mg PRN DAILY PRN PO HARD STOOLS; Start 02/21/21 at 08:45 Ondansetron HCl (Zofran) 4 mg PRN Q6HRS PRN IVP NAUSEA/VOMITING; Start 02/21/21 at 08:45 Dextrose (Dextrose 50%-Water Syringe) 12.5 gm PRN Q15MIN PRN IV SEE COMMENTS; Start 02/21/21 at 08:45 Acetaminophen (Tylenol) 650 mg PRN Q4HRS PRN PO TEMP OVER 100.4F OR MILD PAIN; Start 02/21/21 at 08:45 Pantoprazole Sodium (PROTONIX VIAL for IV PUSH) 40 mg DAILYAC IVP Last administered on 02/22/21at 04:45; Start 02/21/21 at 09:00 Oxycodone/ Acetaminophen (Percocet 5/325) 1 tab PRN Q4HRS PRN PO MILD PAIN, 1ST CHOICE Last administered on 02/21/21at 19:59; Start 02/21/21 at 08:45 Morphine Sulfate (Morphine Sulfate) 1 mg PRN Q1HR PRN IV PAIN-SEE COMMENTS; Start 02/21/21 at 08:45 Morphine Sulfate (Morphine Sulfate) 2 mg PRN Q2HR PRN IVP SEVERE PAIN 7-10; Start 02/21/21 at 08:45; Stop 02/22/21 at 08:44; Status DC Prochlorperazine Edisylate (Compazine) 10 mg PRN Q6HRS PRN IV NAUSEA/VOMITING; Start 02/21/21 at 08:45 Polyethylene Glycol (miraLAX PACKET) 17 gm Q6HRS PO Last administered on 02/22/21at 04:45; Start 02/21/21 at 09:00 Potassium Chloride (Klor-Con) 40 meq 1X ONCE PO Last administered on 02/22/21at 11:10; Start 02/22/21 at 09:30; Stop 02/22/21 at 09:31; Status DC Vitals/I & O Vital Sign - Last 24 Hours 02/21/21 02/21/21 02/21/21 02/21/21 15:00 19:00 19:59 20:14 Temp 97.5 98.7 97.5 98.7 Pulse 78 72 Resp 17 18 18 B/P (MAP) 140/79 (99) 140/69 (92) Pulse Ox 96 99 96 O2 Delivery Room Air Room Air Room Air Room Air 02/21/21 02/21/21 02/22/21 02/22/21 20:27 23:05 02:27 07:00 Temp 98.3 98.3 97.3 98.3 98.3 97.3 Pulse 69 68 78 Resp 18 18 18 18 B/P (MAP) 159/67 (97) 151/69 (96) 159/92 (114) Pulse Ox 96 92 95 94 O2 Delivery Room Air Room Air Room Air Room Air Intake and Output 02/21/21 02/21/21 02/22/21 15:00 23:00 07:00 Intake Total 480 ml 240 ml Balance 480 ml 240 ml Justifications for Admission Other Justification Generalized weakness, abdominal wall hematoma SHARYN TRAN MD Feb 22, 2021 11:28
--- NOTE | 2021-02-22 11:40 | PDOC ---
[employer] PROGRESS NOTE Date of Service DOS: DATE: 02/22/21 TIME: 11:37 Chief Complaint Chief Complaint Generalized weakness Constipation Large hematoma within the right lateral abdominal wall musculature spanning 23 x 14 x 8 cm. No clear active extravasation. A 3.3 cm masslike opacity at the superior margin of the [id number] in the left upper lobe may reflect loculated fluid in the fissure or a mass. Moderate centrilobular emphysema. Trace bilateral pleural effusions. Multiple hepatic cysts Admit to hospitalist service for further management Start bowel regimen PT OT modalities Appreciate general surgery recommendationsno surgical intervention at this time due to lack of extravasation or bleeding Obtain records DuoNebs as needed if there is dyspnea or hypoxia Hold for DVT prophylaxis Protonix GI prophylaxis ADA diet CODE STATUS full Discussed with RN and SW Disposition inpatient management as above DPOA: Daughter, Whitney Sneed History of Present Illness History of Present Illness 80 year old female hypothyroid, hyperlipedimia, hypertension presents for evaluation of right sided abdominal pain and constipation. Patient with recent hospitalization for COVID at [facility]-- Admitted on Jan 31 and Discharged Feb 18. Patients hospitalization was complicated with Right abdominal wall hematoma. Family choose to have patient discharged home vs rehab. Daughter states since discharge patient is not as active and with decreased appetite. Daughter seem to be mainly concerned that patient has not had a bowel movement--- stating since Jan 31 patient has had only 1 BM and she is requesting patient to be "cleaned out" Patients only complains of right sided abdominal pain. She denies any chest pain or shortness of breath. At the time of my evaluation, patient was unable to provide much history or reasons why she is at the hospital and why she was at . I attempted to call the daughter Whitney Sneed, phone number [phone] without any success. 02/22/2021 No acute events overnight. Patient seen and examined bedside. Patient states that she is feeling somewhat better and her abdominal pain has somewhat improved. However, she is still unable to elaborate on why she was at [facility]. Attempted to call daughter for the 2nd time and still no response. Pending records to be faxed over. Patient's chart, labs, images were reviewed and discussed with RN Vitals/I&O Vitals/I&O: Vital Signs Date Time Temp Pulse Resp B/P (MAP) Pulse Ox O2 Delivery O2 Flow Rate FiO2 02/22/21 07:00 97.3 78 18 159/92 (114) 94 Room Air 97.3 I & O 02/21/21 02/21/21 02/22/21 15:00 23:00 07:00 Intake Total 480 ml 240 ml Balance 480 ml 240 ml Physical Exam General: Alert Heart: Regular rate Abdomen: Soft (large palpable hematoma right abdomen, minimally tender with palpation) Extremities: No clubbing, No cyanosis Skin: No rashes, No breakdown Labs Labs: Laboratory Tests Test 02/21/21 12:50 02/22/21 06:20 02/22/21 06:30 Prothrombin Time 13.0 SEC (11.7-14.0) Prothromb Time International Ratio 1.0 (0.8-1.1) White Blood Count 8.6 x10^3/uL (4.0-11.0) Red Blood Count 3.14 x10^6/uL (3.50-5.40) Hemoglobin 8.9 g/dL (12.0-15.5) Hematocrit 27.8 % (36.0-47.0) Mean Corpuscular Volume 89 fL (79-100) Mean Corpuscular Hemoglobin 28 pg (25-35) Mean Corpuscular Hemoglobin Concent 32 g/dL (31-37) Red Cell Distribution Width 19.8 % (11.5-14.5) Platelet Count 252 x10^3/uL (140-400) Neutrophils (%) (Auto) 85 % (31-73) Lymphocytes (%) (Auto) 8 % (24-48) Monocytes (%) (Auto) 6 % (0-9) Eosinophils (%) (Auto) 1 % (0-3) Basophils (%) (Auto) 0 % (0-3) Neutrophils # (Auto) 7.3 x10^3/uL (1.8-7.7) Lymphocytes # (Auto) 0.7 x10^3/uL (1.0-4.8) Monocytes # (Auto) 0.5 x10^3/uL (0.0-1.1) Eosinophils # (Auto) 0.1 x10^3/uL (0.0-0.7) Basophils # (Auto) 0.0 x10^3/uL (0.0-0.2) Sodium Level 143 mmol/L (136-145) Potassium Level 3.1 mmol/L (3.5-5.1) Chloride Level 108 mmol/L (98-107) Carbon Dioxide Level 28 mmol/L (21-32) Anion Gap 7 (6-14) Blood Urea Nitrogen 8 mg/dL (7-20) Creatinine 0.8 mg/dL (0.6-1.0) Estimated GFR (Cockcroft-Gault) 83.9 Glucose Level 70 mg/dL (70-99) Calcium Level 8.1 mg/dL (8.5-10.1) Phosphorus Level 2.6 mg/dL (2.6-4.7) Magnesium Level 2.1 mg/dL (1.8-2.4) Assessment and Plan Assessmemt and Plan Problems Medical Problems: (1) Abdominal pain Status: Acute (2) Constipation Status: Acute (3) Generalized weakness Status: Acute (4) Hematoma Status: Acute Comment Review of Relevant I have reviewed the following items rehan (where applicable) has been applied. Medications: Current Medications Medications (Trade) Dose Ordered Sig/Gagan Route PRN Reason Start Time Stop Time Status Last Admin Dose Admin Potassium Chloride (Klor-Con) 40 meq 1X ONCE PO 02/22/21 09:30 02/22/21 09:31 DC 02/22/21 11:10 Justifications for Admission Other Justification Generalized weakness, abdominal wall hematoma HAN JANSEN MD Feb 22, 2021 11:40
[2021-02-22 15:00] VITALS: BP 130/68
[2021-02-22] MEDS ORDERED: ASPI-886 PO (18:39)
[2021-02-22] MEDS ORDERED: ATOR80TA72 PO (18:39)
[2021-02-22] MEDS ORDERED: ERGO500089 PO (18:39)
[2021-02-22] MEDS ORDERED: MULT-471 PO (18:39)
[2021-02-22] MEDS ORDERED: ATOR40TA59 PO (18:39)
[2021-02-22] MEDS ORDERED: AMLO-187 PO (18:39)
[2021-02-22] MEDS ORDERED: CLOP75TA PO (18:39)
[2021-02-22] MEDS ORDERED: CALC-178 PO (18:39)
[2021-02-22] MEDS ORDERED: LEVO75TA5 PO (18:39)
--- NOTE | 2021-02-22 18:40 | NUR ---
Nurse's note: Records from [facility] received today, home meds entered in the system. The patient's family spoke to this nurse about the patient's constipation and hypothyroidism. They want her thyroid checked and were asking if another enema dose would be possible.; will pass the information in the nurse report.
[2021-02-22 19:10] VITALS: BP 137/67
[2021-02-22] MEDS: oxyCODONE/APAP 5/325 1 TAB TABLET PO PRN (21:08)
[2021-02-22 22:50] VITALS: BP 148/83
[2021-02-23] MEDS: POLYETHYLENE GLYCOL 3350 17 GM PACKET. PO SCH ×4 (00:28→18:00)
--- NOTE | 2021-02-23 02:26 | EKG ---
[facility] [address] [place] [address] Test Date: 2021-02-20 Test Time: 21:51:05 Pat Name: KEVIN PERALES Department: Room: 574 1 Gender: F Coding Specialist Home Health: : 1940 Requested By: SOBEIDA GIL Order Number: [id number] Reading MD: Measurements Intervals [place] Rate: 82 P: 58 [place]: 168 QRS: -4 QRSD: 72 T: 72 QT: 378 QTc: 445 Interpretive Statements SINUS RHYTHM LEFTWARD AXIS LOW LIMB LEAD VOLTAGE T ABNORMALITY IN HIGH LATERAL LEADS ABNORMAL ECG RI6.01 No previous ECG available for comparison
[2021-02-23 03:35] VITALS: BP 122/85
[2021-02-23] MEDS: PANTOPRAZOLE IV PUSH 40 MG VIAL. IVP SCH (04:50)
[2021-02-23 07:00] VITALS: BP 151/64
[2021-02-23 07:35] LABS: BASO % 1 % (0-3); EOS # 0.1 x10^3/uL (0.0-0.7); EOS % 2 % (0-3); HEMATOCRIT 25.6 % (36.0-47.0); HEMOGLOBIN 8.3 g/dL (12.0-15.5); LYMPH # 0.9 x10^3/uL (1.0-4.8); LYMPH % 13 % (24-48); MEAN CORPUSCULAR HEMOGLOBIN 29 pg (25-35); MEAN CORPUSCULAR HGB CONC 33 g/dL (31-37); MEAN CORPUSCULAR VOLUME 88 fL (79-100); MONO # 0.4 x10^3/uL (0.0-1.1); MONO % 6 % (0-9); NEUT # 5.5 x10^3/uL (1.8-7.7); NEUT % 78 % (31-73); PLATELET COUNT 233 x10^3/uL (140-400); RED BLOOD COUNT 2.92 x10^6/uL (3.50-5.40); RED CELL DISTRIBUTION WIDTH 19.7 % (11.5-14.5); WHITE BLOOD COUNT 7.1 x10^3/uL (4.0-11.0)
[2021-02-23 08:05] LABS: CALCIUM 7.8 mg/dL (8.5-10.1); CREATININE 0.8 mg/dL (0.6-1.0); GFR 83.9; MAGNESIUM 2.2 mg/dL (1.8-2.4); POTASSIUM 3.7 mmol/L (3.5-5.1)
[2021-02-23] MEDS ORDERED: LEVOTHYROXINE 75 MCG TABLET PO SCH (10:00)
[2021-02-23 11:00] VITALS: BP 130/73
[2021-02-23] MEDS: LEVOTHYROXINE 112 MCG TABLET PO SCH (11:00)
--- NOTE | 2021-02-23 13:00 | PDOC ---
[employer] PROGRESS NOTE Date of Service DOS: DATE: 02/23/21 TIME: 12:36 Chief Complaint Chief Complaint Generalized weakness secondary to uncontrolled hypothyroidism with TSH of 54 Constipation likely secondary to uncontrolled hypothyroidism Large hematoma within the right lateral abdominal wall musculature spanning 23 x 14 x 8 cm. No clear active extravasation. Patient with left lung adenocarcinoma status post radiation treatment completed on 12/2019. MRI of the brain and CT abdomen did not show any metastasis from [facility] records. Moderate centrilobular emphysema. Trace bilateral pleural effusions. Multiple hepatic cysts Recent history of COVID-[address] 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 at 75 MCG. Will start here at 112 MCG. Continue bowel regimen PT OT modalities Appreciate general surgery recommendationsno surgical intervention at this time due to lack of extravasation or bleeding Obtain [facility] records DuoNebs as needed if there is dyspnea or hypoxia Hold for DVT prophylaxis Protonix GI prophylaxis ADA diet CODE STATUS full Discussed with RN and SW Disposition inpatient management as above DPOA: Daughter, Whitney Sneed History of Present Illness History of Present Illness 80 year old female hypothyroid, hyperlipedimia, hypertension presents for evaluation of right sided abdominal pain and constipation. Patient with recent hospitalization for COVID at [facility]-- Admitted on Jan 31 and Discharged Feb 18. Patients hospitalization was complicated with Right abdominal wall hematoma. Family choose to have patient discharged home vs rehab. Daughter states since discharge patient is not as active and with decreased appetite. Daughter seem to be mainly concerned that patient has not had a bowel movement--- stating since Jan 31 patient has had only 1 BM and she is requesting patient to be "cleaned out" Patients only complains of right sided abdominal pain. She denies any chest pain or shortness of breath. At the time of my evaluation, patient was unable to provide much history or reasons why she is at the hospital and why she was at . I attempted to call the daughter Whitney Sneed, phone number [phone] without any success. 02/22/2021 No acute events overnight. Patient seen and examined bedside. Patient states that she is feeling somewhat better and her abdominal pain has somewhat impr corona. However, she is still unable to elaborate on why she was at [facility]. Attempted to call daughter for the 2nd time and still no response. Pending records to be faxed over. Patient's chart, labs, images were reviewed and discussed with RN 02/23/2021 No acute events overnight. Patient seen and examined bedside. No changes in her mental status or abdominal discomfort. No reported bowel movements yet. Continue bowel regimen. records are obtained and it appears that patient was admitted for COVID-19 pneumonia and developed a abdominal wall hematoma at that time. She has been on aspirin and Plavix for history of stroke that she suffered last year. Family was actually upset with the doctors at because they would not start her on ivermectin. This was documented in the records faxed from . She was actually recommended for patient to go to rehab however family decided to take patient home. She was evaluated by endocrinology, surgery and neurology at . She was started on levothyroxine 75 mcg at the time. General surgery was also consulted for the abdominal wall hematoma there was no surgical intervention although they did consider possible IR for drainage. Neurology was also consulted but there was no new changes in her infarct and she was resumed on her aspirin and plvix. Patient's chart, labs, images were reviewed and discussed with RN Vitals/I&O Vitals/I&O: Vital Signs Date Time Temp Pulse Resp B/P (MAP) Pulse Ox O2 Delivery O2 Flow Rate FiO2 02/23/21 11:00 98.1 76 18 130/73 (92) 91 Room Air 98.1 I & O 02/22/21 02/22/21 02/23/21 15:00 23:00 07:00 Intake Total 580 ml 100 ml Output Total 0 ml Balance 580 ml 100 ml 0 ml Physical Exam General: Alert Heart: Regular rate Abdomen: Soft (large palpable hematoma right abdomen, minimally tender with palpation) Extremities: No clubbing, No cyanosis Skin: No rashes, No breakdown Labs Labs: Laboratory Tests Test 02/23/21 06:45 White Blood Count 7.1 x10^3/uL (4.0-11.0) Red Blood Count 2.92 x10^6/uL (3.50-5.40) Hemoglobin 8.3 g/dL (12.0-15.5) Hematocrit 25.6 % (36.0-47.0) Mean Corpuscular Volume 88 fL (79-100) Mean Corpuscular Hemoglobin 29 pg (25-35) Mean Corpuscular Hemoglobin Concent 33 g/dL (31-37) Red Cell Distribution Width 19.7 % (11.5-14.5) Platelet Count 233 x10^3/uL (140-400) Neutrophils (%) (Auto) 78 % (31-73) Lymphocytes (%) (Auto) 13 % (24-48) Monocytes (%) (Auto) 6 % (0-9) Eosinophils (%) (Auto) 2 % (0-3) Basophils (%) (Auto) 1 % (0-3) Neutrophils # (Auto) 5.5 x10^3/uL (1.8-7.7) Lymphocytes # (Auto) 0.9 x10^3/uL (1.0-4.8) Monocytes # (Auto) 0.4 x10^3/uL (0.0-1.1) Eosinophils # (Auto) 0.1 x10^3/uL (0.0-0.7) Basophils # (Auto) 0.0 x10^3/uL (0.0-0.2) Sodium Level 141 mmol/L (136-145) Potassium Level 3.7 mmol/L (3.5-5.1) Chloride Level 108 mmol/L (98-107) Carbon Dioxide Level 26 mmol/L (21-32) Anion Gap 7 (6-14) Blood Urea Nitrogen 11 mg/dL (7-20) Creatinine 0.8 mg/dL (0.6-1.0) Estimated GFR (Cockcroft-Gault) 83.9 Glucose Level 79 mg/dL (70-99) Calcium Level 7.8 mg/dL (8.5-10.1) Magnesium Level 2.2 mg/dL (1.8-2.4) Thyroid Stimulating Hormone (TSH) 57.389 uIU/mL (0.358-3.74) Assessment and Plan Assessmemt and Plan Problems Medical Problems: (1) Abdominal pain Status: Acute (2) Constipation Status: Acute (3) Generalized weakness Status: Acute (4) Hematoma Status: Acute Comment Review of Relevant I have reviewed the following items rehan (where applicable) has been applied. Medications: Current Medications Medications (Trade) Dose Ordered Sig/Gagan Route PRN Reason Start Time Stop Time Status Last Admin Dose Admin Levothyroxine Sodium (Synthroid) 112 mcg DAILY06 PO 02/23/21 11:00 02/23/21 11:00 Justifications for Admission Other Justification Generalized weakness, abdominal wall hematoma HAN JANSEN MD Feb 23, 2021 13:00
--- NOTE | 2021-02-23 13:13 | PDOC ---
PROGRESS NOTES Date of Service DATE: 02/23/21 TIME: 13:12 Subjective Subjective denies pain Objective Objective Vital Signs Date Time Temp Pulse Resp B/P (MAP) Pulse Ox O2 Delivery O2 Flow Rate FiO2 02/23/21 11:00 98.1 76 18 130/73 (92) 91 Room Air 98.1 Intake and Output 02/23/21 07:00 Intake Total 680 ml Output Total 0 ml Balance 680 ml Intake Oral 680 ml Output Urine Total 0 ml # Voids 4 Physical Exam Abdomen: Soft (mass on right side, less tender) Heart: Regular rate Extremities: No clubbing, No cyanosis General: Alert Assessment Assessment Problems Medical Problems: (1) Abdominal pain Status: Acute (2) Constipation Status: Acute (3) Generalized weakness Status: Acute (4) Hematoma Status: Acute Plan Plan of Care No surgical recs for hematoma, appears stable; should regress over time; we will sign off, please call if needed in the future Comment Review of Relevant I have reviewed the following items rehan (where applicable) has been applied. Labs Laboratory Tests Test 02/22/21 06:20 02/22/21 06:30 02/23/21 06:45 White Blood Count 8.6 x10^3/uL (4.0-11.0) 7.1 x10^3/uL (4.0-11.0) Red Blood Count 3.14 x10^6/uL (3.50-5.40) 2.92 x10^6/uL (3.50-5.40) Hemoglobin 8.9 g/dL (12.0-15.5) 8.3 g/dL (12.0-15.5) Hematocrit 27.8 % (36.0-47.0) 25.6 % (36.0-47.0) Mean Corpuscular Volume 89 fL (79-100) 88 fL (79-100) Mean Corpuscular Hemoglobin 28 pg (25-35) 29 pg (25-35) Mean Corpuscular Hemoglobin Concent 32 g/dL (31-37) 33 g/dL (31-37) Red Cell Distribution Width 19.8 % (11.5-14.5) 19.7 % (11.5-14.5) Platelet Count 252 x10^3/uL (140-400) 233 x10^3/uL (140-400) Neutrophils (%) (Auto) 85 % (31-73) 78 % (31-73) Lymphocytes (%) (Auto) 8 % (24-48) 13 % (24-48) Monocytes (%) (Auto) 6 % (0-9) 6 % (0-9) Eosinophils (%) (Auto) 1 % (0-3) 2 % (0-3) Basophils (%) (Auto) 0 % (0-3) 1 % (0-3) Neutrophils # (Auto) 7.3 x10^3/uL (1.8-7.7) 5.5 x10^3/uL (1.8-7.7) Lymphocytes # (Auto) 0.7 x10^3/uL (1.0-4.8) 0.9 x10^3/uL (1.0-4.8) Monocytes # (Auto) 0.5 x10^3/uL (0.0-1.1) 0.4 x10^3/uL (0.0-1.1) Eosinophils # (Auto) 0.1 x10^3/uL (0.0-0.7) 0.1 x10^3/uL (0.0-0.7) Basophils # (Auto) 0.0 x10^3/uL (0.0-0.2) 0.0 x10^3/uL (0.0-0.2) Sodium Level 143 mmol/L (136-145) 141 mmol/L (136-145) Potassium Level 3.1 mmol/L (3.5-5.1) 3.7 mmol/L (3.5-5.1) Chloride Level 108 mmol/L (98-107) 108 mmol/L (98-107) Carbon Dioxide Level 28 mmol/L (21-32) 26 mmol/L (21-32) Anion Gap 7 (6-14) 7 (6-14) Blood Urea Nitrogen 8 mg/dL (7-20) 11 mg/dL (7-20) Creatinine 0.8 mg/dL (0.6-1.0) 0.8 mg/dL (0.6-1.0) Estimated GFR (Cockcroft-Gault) 83.9 83.9 Glucose Level 70 mg/dL (70-99) 79 mg/dL (70-99) Calcium Level 8.1 mg/dL (8.5-10.1) 7.8 mg/dL (8.5-10.1) Phosphorus Level 2.6 mg/dL (2.6-4.7) Magnesium Level 2.1 mg/dL (1.8-2.4) 2.2 mg/dL (1.8-2.4) Thyroid Stimulating Hormone (TSH) 57.389 uIU/mL (0.358-3.74) Laboratory Tests Test 02/23/21 06:45 White Blood Count 7.1 x10^3/uL (4.0-11.0) Red Blood Count 2.92 x10^6/uL (3.50-5.40) Hemoglobin 8.3 g/dL (12.0-15.5) Hematocrit 25.6 % (36.0-47.0) Mean Corpuscular Volume 88 fL (79-100) Mean Corpuscular Hemoglobin 29 pg (25-35) Mean Corpuscular Hemoglobin Concent 33 g/dL (31-37) Red Cell Distribution Width 19.7 % (11.5-14.5) Platelet Count 233 x10^3/uL (140-400) Neutrophils (%) (Auto) 78 % (31-73) Lymphocytes (%) (Auto) 13 % (24-48) Monocytes (%) (Auto) 6 % (0-9) Eosinophils (%) (Auto) 2 % (0-3) Basophils (%) (Auto) 1 % (0-3) Neutrophils # (Auto) 5.5 x10^3/uL (1.8-7.7) Lymphocytes # (Auto) 0.9 x10^3/uL (1.0-4.8) Monocytes # (Auto) 0.4 x10^3/uL (0.0-1.1) Eosinophils # (Auto) 0.1 x10^3/uL (0.0-0.7) Basophils # (Auto) 0.0 x10^3/uL (0.0-0.2) Sodium Level 141 mmol/L (136-145) Potassium Level 3.7 mmol/L (3.5-5.1) Chloride Level 108 mmol/L (98-107) Carbon Dioxide Level 26 mmol/L (21-32) Anion Gap 7 (6-14) Blood Urea Nitrogen 11 mg/dL (7-20) Creatinine 0.8 mg/dL (0.6-1.0) Estimated GFR (Cockcroft-Gault) 83.9 Glucose Level 79 mg/dL (70-99) Calcium Level 7.8 mg/dL (8.5-10.1) Magnesium Level 2.2 mg/dL (1.8-2.4) Thyroid Stimulating Hormone (TSH) 57.389 uIU/mL (0.358-3.74) Medications Current Medications Sodium Chloride 1,000 ml @ 1,000 mls/hr 1X ONCE IV Last administered on 02/20/21at 23:08; Start 02/20/21 at 23:30; Stop 02/21/21 at 00:29; Status DC Sodium Chloride 1,000 ml @ 1,000 mls/hr 1X ONCE IV ; Start 02/20/21 at 23:30; Stop 02/21/21 at 00:29; Status DC Iohexol (Omnipaque 300 Mg/ml) 75 ml 1X ONCE IV Last administered on 02/20/21at 23:46; Start 02/21/21 at 00:00; Stop 02/21/21 at 00:01; Status DC Info (CONTRAST GIVEN -- Rx MONITORING) 1 each PRN DAILY PRN MC SEE COMMENTS; Start 02/20/21 at 23:45; Stop 02/22/21 at 23:44; Status DC Sennosides (Senna) 17.2 mg PRN BID PRN PO CONSTIPATION; Start 02/21/21 at 08:45 Docusate Sodium (Colace) 100 mg PRN DAILY PRN PO HARD STOOLS; Start 02/21/21 at 08:45 Ondansetron HCl (Zofran) 4 mg PRN Q6HRS PRN IVP NAUSEA/VOMITING; Start 02/21/21 at 08:45 Dextrose (Dextrose 50%-Water Syringe) 12.5 gm PRN Q15MIN PRN IV SEE COMMENTS; Start 02/21/21 at 08:45 Acetaminophen (Tylenol) 650 mg PRN Q4HRS PRN PO TEMP OVER 100.4F OR MILD PAIN; Start 02/21/21 at 08:45 Pantoprazole Sodium (PROTONIX VIAL for IV PUSH) 40 mg DAILYAC IVP Last administered on 02/23/21at 04:50; Start 02/21/21 at 09:00 Oxycodone/ Acetaminophen (Percocet 5/325) 1 tab PRN Q4HRS PRN PO MODERATE PAIN Last administered on 02/22/21at 21:08; Start 02/21/21 at 08:45 Morphine Sulfate (Morphine Sulfate) 1 mg PRN Q1HR PRN IV PAIN-SEE COMMENTS; Start 02/21/21 at 08:45 Morphine Sulfate (Morphine Sulfate) 2 mg PRN Q2HR PRN IVP SEVERE PAIN 7-10; Start 02/21/21 at 08:45; Stop 02/22/21 at 08:44; Status DC Prochlorperazine Edisylate (Compazine) 10 mg PRN Q6HRS PRN IV NAUSEA/VOMITING; Start 02/21/21 at 08:45 Polyethylene Glycol (miraLAX PACKET) 17 gm Q6HRS PO Last administered on 02/23/21at 04:50; Start 02/21/21 at 09:00 Potassium Chloride (Klor-Con) 40 meq 1X ONCE PO Last administered on 02/22/21at 11:10; Start 02/22/21 at 09:30; Stop 02/22/21 at 09:31; Status DC Amlodipine Besylate (Norvasc) 5 mg DAILY PO ; Start 02/23/21 at 10:00 Atorvastatin Calcium (Lipitor) 40 mg QHS PO ; Start 02/23/21 at 21:00 Levothyroxine Sodium (Synthroid) 75 mcg DAILY06 PO ; Start 02/23/21 at 10:00; Stop 02/23/21 at 10:33; Status DC Calcium/Vitamin D (Oscal D 500mg/ 200uts) 1 tab DAILY PO ; Start 02/23/21 at 10:00 Multivitamins (Thera M Plus) 1 tab DAILY PO ; Start 02/23/21 at 10:00 Levothyroxine Sodium (Synthroid) 112 mcg DAILY06 PO Last administered on 02/23/21at 11:00; Start 02/23/21 at 11:00 Active Scripts Active Reported Calcium 1,000 + D3 Caplet (Calcium Carbonate/Vitamin D3) 1 Each Tablet 1 Tab PO DAILY 30 Days Multivitamins With Iron (Multivitamin W/Iron, Minerals) 1 Each Tab.chew 1 Tab PO DAILY 30 Days Atorvastatin Calcium 40 Mg Tablet 1 Tab PO DAILY Atorvastatin Calcium 80 Mg Tablet 80 Mg PO QHS Amlodipine Besylate 10 Mg Tablet 10 Mg PO DAILY Levothyroxine Sodium 75 Mcg Tablet 1 Tab PO DAILY Aspirin Ec (Aspirin) 81 Mg Tablet.dr 1 Tab PO DAILY Clopidogrel (Clopidogrel Bisulfate) 75 Mg Tablet 1 Tab PO DAILY Vitamin D2 (Ergocalciferol (Vitamin D2)) 1,250 Mcg Capsule 1,250 Mcg PO WEEKLY Vitals/I & O Vital Sign - Last 24 Hours 02/22/21 02/22/21 02/22/21 02/22/21 15:00 19:10 19:56 21:08 Temp 98.0 97.6 98.0 97.6 Pulse 78 74 Resp 20 18 18 B/P (MAP) 130/68 (88) 137/67 (90) Pulse Ox 98 99 99 O2 Delivery Room Air Room Air Room Air Room Air 02/22/21 02/22/21 02/23/21 02/23/21 21:38 22:50 03:35 07:00 Temp 97.6 98.4 98.5 97.6 98.4 98.5 Pulse 74 83 78 Resp 18 18 20 16 B/P (MAP) 148/83 (104) 122/85 (97) 151/64 (93) Pulse Ox 99 99 99 91 O2 Delivery Room Air Room Air Room Air Room Air 02/23/21 11:00 Temp 98.1 98.1 Pulse 76 Resp 18 B/P (MAP) 130/73 (92) Pulse Ox 91 O2 Delivery Room Air Intake and Output 02/22/21 02/22/21 02/23/21 15:00 23:00 07:00 Intake Total 580 ml 100 ml Output Total 0 ml Balance 580 ml 100 ml 0 ml Justifications for Admission Other Justification Generalized weakness, abdominal wall hematoma SHARYN TRAN MD Feb 23, 2021 13:13
[2021-02-23] MEDS: CALCIUM CARB/VIT D3 500/200 TABLET. PO SCH (14:58)
[2021-02-23] MEDS: MULTIVITAMIN with MINERAL TABLET. PO SCH (14:58)
[2021-02-23 15:00] VITALS: BP 122/72
[2021-02-23 19:00] VITALS: BP 130/68
[2021-02-23] MEDS: ATORVASTATIN CALCIUM 40 MG TABLET. PO SCH (20:21)
[2021-02-23] MEDS: oxyCODONE/APAP 5/325 1 TAB TABLET PO PRN (20:21)
--- NOTE | 2021-02-23 22:04 | CONS ---
DATE OF CONSULTATION: 02/23/2021 REFERRING PHYSICIAN: Chris Avery MD REASON FOR CONSULTATION: Recommendations for secondary stroke prevention. HISTORY OF PRESENT ILLNESS: The patient is a pleasant 80-year-old woman who just had a prolonged hospital stay at [facility] from 01/31/2021 through 02/18/2021. At that time, she was diagnosed with COVID pneumonia. While acutely ill, she did suffer a subacute lacunar stroke. MRI revealed haziness of diffusion weighted in the right brainstem, but there was no ADC correlation suggesting it to be subacute. She did develop a large abdominal hematoma after an injection of Lovenox in that region apparently. She also has a history of lacunar infarcts. She has a number of risk factors including hypertension, hyperlipidemia, chronic tobacco abuse along with peripheral vascular disease. She does deny that she ever had a COVID vaccine. She also was found at to have severe hypothyroidism and was started on levothyroxine. She had a stroke in 07/2019 and was told to be on dual antiplatelet therapy with aspirin and Plavix for 30 days and then Plavix monotherapy. When she presented to , she was only on aspirin monotherapy. She was seen by the neurologist there who did make recommendations for secondary stroke prevention regarding dual antiplatelet therapy for 30 days, followed by Plavix. PAST MEDICAL HISTORY: 1. History of claudication. 2. Hyperlipidemia. 3. Hypertension. 4. Hypothyroidism. 5. Peripheral vascular disease. 6. Ongoing tobacco abuse. 7. COVID pneumonia recently at [facility] from 01/31 through 02/18. 8. . 9. History of breast biopsy. 10. Arterial stent, right iliac artery and femoral stent. 11. D and C. ALLERGIES: NO KNOWN ALLERGIES TO DRUGS. MEDICATIONS: At presentation, amlodipine 10 mg, aspirin 81 mg, atorvastatin 40 mg or 80 mg, calcium with vitamin D, clopidogrel 75 mg, vitamin D2, levothyroxine 75 mcg and multivitamin with iron. FAMILY HISTORY: Sister had Graves' disease and received radioactive iodine. SOCIAL HISTORY: She is a daily smoker. She lives with her daughter. She has 13 grandchildren and 2 great grandchildren. She had 4 children. She is a . She does not drink alcohol. She does not use recreational drugs. REVIEW OF SYSTEMS: She does not complain of any headache. She has had confusion. She denies any change of vision or hearing. She has been able to chew and swallow. She does not feel short of breath. She denies chest pain. She has some abdominal discomfort. She does not complain a specific bone or joint pain. She has not had recent fever or rash. Does have constipation. Denies any genitourinary complaint. Does not complain of focal numbness. She is generally weak. She does not have any psychiatric complaints. PHYSICAL EXAMINATION: VITAL SIGNS: Blood pressure was 130/73, pulse 75, respirations 18, temperature 98.1 degrees Fahrenheit. Oximetry was 91% on room air. It had also been up to 99% on room air. Her weight was 59.4 kilograms, height 65 inches with a calculated body mass index of 21.8. GENERAL: She was alert, awake and cooperative. NEUROLOGIC: Speech was fluent and clear. Attention and concentration was impaired. Response time was slow and processing seems slow. She was, however, oriented to place, month and year. She thought she was just discharged 2 days ago from [facility] when in fact it has been 5 days ago. She was able to follow commands. Examination of the cranial nerves revealed visual mcdermott were full to confrontation. Extraocular movements were intact. The eyes were conjugate. Pursuit movements were smooth and saccadic eye movements were without dysmetria. Facial sensation was intact. The muscles of mastication and facial expression were powerful symmetrically. Hearing was intact to finger rub. The palate arched symmetrically and the tongue was midline with full motion. Sternocleidomastoid and trapezius were powerful. Muscle bulk and tone was normal. There was no spasticity or rigidity. She did not have tremor or asterixis. Power in the upper extremity was mildly diminished 4+/5. In the lower extremities, power was symmetrically diminished 4/5. Reflexes were 2/4 in the upper and lower extremities. Toes were not upgoing. Coordination testing with [id number], fine motor and rapid movements were fair. [id number] had ataxia bilaterally. She was generally weak in the legs and had difficulty raising them more than several inches, but did offer small amount of resistance. Same was true with knee flexion. Sensory exam was intact to pain, light touch, proprioception, graphesthesia, cold thermal and vibration. There was no extinction to double simultaneous stimulation. Gait was not testable. Auscultation of the carotid arteries did not reveal a bruit. HEART: Rhythm was regular, without a murmur. EXTREMITIES: Peripheral pulses were symmetric. There was no edema or cyanosis. LABORATORY RESULTS: CBC was performed on 02/23/2021 revealing a normal white blood cell count. Hemoglobin was diminished at 8.3, hematocrit 25.6 and platelet count 233. Chemistries were performed on 02/23/2021 revealing normal sodium, potassium and CO2. Chloride was elevated at 108. BUN and creatinine were normal and GFR calculated at 83.9. Calcium was low at 7.8. Magnesium normal. TSH was elevated to 57.389. Lipase measured on 02/20/2021 was not elevated. PT/INR from 02/21/2021 was 1. Urinalysis revealed 0-2 red cells, 0-4 white cells, occasional epithelial cells and a few bacteria on 02/21/2021. DIAGNOSTIC RESULTS: Abdominal pelvis CAT scan performed on 02/20/2021 revealed large hematoma within the right lateral abdominal wall musculature, spanning 23 x 14 x 8 cm. There was no clear extravasation. Revealed emphysema. 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 There was bilateral inguinal hernias. There was a 3.3 cm mass-like opacity at the superior margin of the field of view in the left upper lobe. IMPRESSION AND PLAN: The patient is a 80-year-old woman who was admitted at [facility] from 01/31 through 02/18. She was actually admitted to [facility], it looks like on 02/20, so when she said she was only home for 2 days, she was actually correct. She did see a neurologist at [facility], who did recommend aspirin and Plavix. I feel this is a reasonable recommendation as it appears that her abdominal wall hematoma has been stable. She has had a history of a number of lacunar strokes and had another lacunar stroke while hospitalized. She was predisposed due to COVID infection for hypercoagulable state. After 30 days, dual antiplatelet therapy can be changed to monotherapy with Plavix. She is on atorvastatin to address hyperlipidemia. She is generally weak in both legs, likely deconditioned. She will clearly need inpatient rehabilitation. She needs to control her other health issues and of course needs to stop smoking. After the appropriate time, it would be helpful to have her vaccinated for COVID. KINZA/DEMIAN DR: Deni TID: [id number]
[2021-02-23 22:35] VITALS: BP 134/73
[2021-02-24 02:42] VITALS: BP 132/72
[2021-02-24] MEDS: PANTOPRAZOLE IV PUSH 40 MG VIAL. IVP SCH (04:46)
[2021-02-24] MEDS: LEVOTHYROXINE 112 MCG TABLET PO SCH (04:46)
[2021-02-24] MEDS: POLYETHYLENE GLYCOL 3350 17 GM PACKET. PO SCH ×4 (04:46→18:00)
[2021-02-24 07:15] VITALS: BP 160/77
[2021-02-24 07:45] LABS: BASO % 1 % (0-3); EOS # 0.1 x10^3/uL (0.0-0.7); EOS % 2 % (0-3); HEMATOCRIT 27.9 % (36.0-47.0); HEMOGLOBIN 8.8 g/dL (12.0-15.5); LYMPH # 0.9 x10^3/uL (1.0-4.8); LYMPH % 12 % (24-48); MEAN CORPUSCULAR HEMOGLOBIN 28 pg (25-35); MEAN CORPUSCULAR HGB CONC 32 g/dL (31-37); MEAN CORPUSCULAR VOLUME 89 fL (79-100); MONO # 0.5 x10^3/uL (0.0-1.1); MONO % 7 % (0-9); NEUT # 5.4 x10^3/uL (1.8-7.7); NEUT % 78 % (31-73); PLATELET COUNT 252 x10^3/uL (140-400); RED BLOOD COUNT 3.14 x10^6/uL (3.50-5.40); WHITE BLOOD COUNT 6.9 x10^3/uL (4.0-11.0)
[2021-02-24 07:48] LABS: CALCIUM 8.1 mg/dL (8.5-10.1); CREATININE 0.8 mg/dL (0.6-1.0); GFR 83.9; POTASSIUM 3.4 mmol/L (3.5-5.1)
--- NOTE | 2021-02-24 09:54 | PDOC ---
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 Also had a lacunar stroke in July Recent COVID pneumonia, unvaccinated Generalized weakness, uncontrolled hypothyroidism, constipation, large right lateral abdominal wall hematoma, history of left lung adenocarcinoma status post radiation treatment (MRI of the brain and CT abdomen negative for metastasis at records), ccentrilobular emphysema, trace bilateral pleural effusions, multiple hepatic cysts Recent history of COVID-19 pneumonia at [facility] Plan Continue aspirin and clopidogrel, switch to just the latter after 30 days Atorvastatin Stop smoking. Get COVID vaccine at appropriate time Subjective No complaints Objective Vital Signs Date Time Temp Pulse Resp B/P (MAP) Pulse Ox O2 Delivery O2 Flow Rate FiO2 02/24/21 07:15 98.4 70 16 160/77 (104) 95 Room Air 98.4 02/24/21 02:42 98.0 Intake and Output 02/24/21 07:00 # Voids 2 PHYSICAL EXAM Alert. Oriented to place and person, does not know date. PERRL. EOMI. CN: no focal findings. Muscle tone: normal. Muscle strength: 4/5, a little weaker on the left DTR: 2+ Plantar reflex: flexor Gait: not examined in bed. Sensory exam: no abnormal findings. No cerebellar signs elicited. Review of Relevant I have reviewed the following items rehan (where applicable) has been applied. Labs Laboratory Tests Test 02/23/21 06:45 02/24/21 06:20 White Blood Count 7.1 x10^3/uL (4.0-11.0) 6.9 x10^3/uL (4.0-11.0) Red Blood Count 2.92 x10^6/uL (3.50-5.40) 3.14 x10^6/uL (3.50-5.40) Hemoglobin 8.3 g/dL (12.0-15.5) 8.8 g/dL (12.0-15.5) Hematocrit 25.6 % (36.0-47.0) 27.9 % (36.0-47.0) Mean Corpuscular Volume 88 fL (79-100) 89 fL (79-100) Mean Corpuscular Hemoglobin 29 pg (25-35) 28 pg (25-35) Mean Corpuscular Hemoglobin Concent 33 g/dL (31-37) 32 g/dL (31-37) Red Cell Distribution Width 19.7 % (11.5-14.5) 20.0 % (11.5-14.5) Platelet Count 233 x10^3/uL (140-400) 252 x10^3/uL (140-400) Neutrophils (%) (Auto) 78 % (31-73) 78 % (31-73) Lymphocytes (%) (Auto) 13 % (24-48) 12 % (24-48) Monocytes (%) (Auto) 6 % (0-9) 7 % (0-9) Eosinophils (%) (Auto) 2 % (0-3) 2 % (0-3) Basophils (%) (Auto) 1 % (0-3) 1 % (0-3) Neutrophils # (Auto) 5.5 x10^3/uL (1.8-7.7) 5.4 x10^3/uL (1.8-7.7) Lymphocytes # (Auto) 0.9 x10^3/uL (1.0-4.8) 0.9 x10^3/uL (1.0-4.8) Monocytes # (Auto) 0.4 x10^3/uL (0.0-1.1) 0.5 x10^3/uL (0.0-1.1) Eosinophils # (Auto) 0.1 x10^3/uL (0.0-0.7) 0.1 x10^3/uL (0.0-0.7) Basophils # (Auto) 0.0 x10^3/uL (0.0-0.2) 0.0 x10^3/uL (0.0-0.2) Sodium Level 141 mmol/L (136-145) 142 mmol/L (136-145) Potassium Level 3.7 mmol/L (3.5-5.1) 3.4 mmol/L (3.5-5.1) Chloride Level 108 mmol/L (98-107) 108 mmol/L (98-107) Carbon Dioxide Level 26 mmol/L (21-32) 26 mmol/L (21-32) Anion Gap 7 (6-14) 8 (6-14) Blood Urea Nitrogen 11 mg/dL (7-20) 8 mg/dL (7-20) Creatinine 0.8 mg/dL (0.6-1.0) 0.8 mg/dL (0.6-1.0) Estimated GFR (Cockcroft-Gault) 83.9 83.9 Glucose Level 79 mg/dL (70-99) 72 mg/dL (70-99) Calcium Level 7.8 mg/dL (8.5-10.1) 8.1 mg/dL (8.5-10.1) Magnesium Level 2.2 mg/dL (1.8-2.4) 2.0 mg/dL (1.8-2.4) Thyroid Stimulating Hormone (TSH) 57.389 uIU/mL (0.358-3.74) Laboratory Tests Test 02/24/21 06:20 White Blood Count 6.9 x10^3/uL (4.0-11.0) Red Blood Count 3.14 x10^6/uL (3.50-5.40) Hemoglobin 8.8 g/dL (12.0-15.5) Hematocrit 27.9 % (36.0-47.0) Mean Corpuscular Volume 89 fL (79-100) Mean Corpuscular Hemoglobin 28 pg (25-35) Mean Corpuscular Hemoglobin Concent 32 g/dL (31-37) Red Cell Distribution Width 20.0 % (11.5-14.5) Platelet Count 252 x10^3/uL (140-400) Neutrophils (%) (Auto) 78 % (31-73) Lymphocytes (%) (Auto) 12 % (24-48) Monocytes (%) (Auto) 7 % (0-9) Eosinophils (%) (Auto) 2 % (0-3) Basophils (%) (Auto) 1 % (0-3) Neutrophils # (Auto) 5.4 x10^3/uL (1.8-7.7) Lymphocytes # (Auto) 0.9 x10^3/uL (1.0-4.8) Monocytes # (Auto) 0.5 x10^3/uL (0.0-1.1) Eosinophils # (Auto) 0.1 x10^3/uL (0.0-0.7) Basophils # (Auto) 0.0 x10^3/uL (0.0-0.2) Sodium Level 142 mmol/L (136-145) Potassium Level 3.4 mmol/L (3.5-5.1) Chloride Level 108 mmol/L (98-107) Carbon Dioxide Level 26 mmol/L (21-32) Anion Gap 8 (6-14) Blood Urea Nitrogen 8 mg/dL (7-20) Creatinine 0.8 mg/dL (0.6-1.0) Estimated GFR (Cockcroft-Gault) 83.9 Glucose Level 72 mg/dL (70-99) Calcium Level 8.1 mg/dL (8.5-10.1) Magnesium Level 2.0 mg/dL (1.8-2.4) Medications Current Medications Sodium Chloride 1,000 ml @ 1,000 mls/hr 1X ONCE IV Last administered on 02/20/21at 23:08; Start 02/20/21 at 23:30; Stop 02/21/21 at 00:29; Status DC Sodium Chloride 1,000 ml @ 1,000 mls/hr 1X ONCE IV ; Start 02/20/21 at 23:30; Stop 02/21/21 at 00:29; Status DC Iohexol (Omnipaque 300 Mg/ml) 75 ml 1X ONCE IV Last administered on 02/20/21at 23:46; Start 02/21/21 at 00:00; Stop 02/21/21 at 00:01; Status DC Info (CONTRAST GIVEN -- Rx MONITORING) 1 each PRN DAILY PRN MC SEE COMMENTS; Start 02/20/21 at 23:45; Stop 02/22/21 at 23:44; Status DC Sennosides (Senna) 17.2 mg PRN BID PRN PO CONSTIPATION; Start 02/21/21 at 08:45 Docusate Sodium (Colace) 100 mg PRN DAILY PRN PO HARD STOOLS; Start 02/21/21 at 08:45 Ondansetron HCl (Zofran) 4 mg PRN Q6HRS PRN IVP NAUSEA/VOMITING; Start 02/21/21 at 08:45 Dextrose (Dextrose 50%-Water Syringe) 12.5 gm PRN Q15MIN PRN IV SEE COMMENTS; Start 02/21/21 at 08:45 Acetaminophen (Tylenol) 650 mg PRN Q4HRS PRN PO TEMP OVER 100.4F OR MILD PAIN; Start 02/21/21 at 08:45 Pantoprazole Sodium (PROTONIX VIAL for IV PUSH) 40 mg DAILYAC IVP Last administered on 02/24/21at 04:46; Start 02/21/21 at 09:00 Oxycodone/ Acetaminophen (Percocet 5/325) 1 tab PRN Q4HRS PRN PO MODERATE PAIN Last administered on 02/23/21at 20:21; Start 02/21/21 at 08:45 Morphine Sulfate (Morphine Sulfate) 1 mg PRN Q1HR PRN IV PAIN-SEE COMMENTS; Start 02/21/21 at 08:45 Morphine Sulfate (Morphine Sulfate) 2 mg PRN Q2HR PRN IVP SEVERE PAIN 7-10; Start 02/21/21 at 08:45; Stop 02/22/21 at 08:44; Status DC Prochlorperazine Edisylate (Compazine) 10 mg PRN Q6HRS PRN IV NAUSEA/VOMITING; Start 02/21/21 at 08:45 Polyethylene Glycol (miraLAX PACKET) 17 gm Q6HRS PO Last administered on 02/24/21at 04:46; Start 02/21/21 at 09:00 Potassium Chloride (Klor-Con) 40 meq 1X ONCE PO Last administered on 02/22/21at 11:10; Start 02/22/21 at 09:30; Stop 02/22/21 at 09:31; Status DC Amlodipine Besylate (Norvasc) 5 mg DAILY PO Last administered on 02/23/21at 14:59; Start 02/23/21 at 10:00 Atorvastatin Calcium (Lipitor) 40 mg QHS PO Last administered on 02/23/21at 20:21; Start 02/23/21 at 21:00 Levothyroxine Sodium (Synthroid) 75 mcg DAILY06 PO ; Start 02/23/21 at 10:00; Stop 02/23/21 at 10:33; Status DC Calcium/Vitamin D (Oscal D 500mg/ 200uts) 1 tab DAILY PO Last administered on 02/23/21at 14:58; Start 02/23/21 at 10:00 Multivitamins (Thera M Plus) 1 tab DAILY PO Last administered on 02/23/21at 14:58; Start 02/23/21 at 10:00 Levothyroxine Sodium (Synthroid) 112 mcg DAILY06 PO Last administered on 02/24/21at 04:46; Start 02/23/21 at 11:00 Clopidogrel Bisulfate (Plavix) 75 mg DAILYWBKFT PO ; Start 02/24/21 at 08:00 Active Scripts Active Reported Calcium 1,000 + D3 Caplet (Calcium Carbonate/Vitamin D3) 1 Each Tablet 1 Tab PO DAILY 30 Days Multivitamins With Iron (Multivitamin W/Iron, Minerals) 1 Each Tab.chew 1 Tab PO DAILY 30 Days Atorvastatin Calcium 40 Mg Tablet 1 Tab PO DAILY Atorvastatin Calcium 80 Mg Tablet 80 Mg PO QHS Amlodipine Besylate 10 Mg Tablet 10 Mg PO DAILY Levothyroxine Sodium 75 Mcg Tablet 1 Tab PO DAILY Aspirin Ec (Aspirin) 81 Mg Tablet.dr 1 Tab PO DAILY Clopidogrel (Clopidogrel Bisulfate) 75 Mg Tablet 1 Tab PO DAILY Vitamin D2 (Ergocalciferol (Vitamin D2)) 1,250 Mcg Capsule 1,250 Mcg PO WEEKLY Vitals/I & O Vital Sign - Last 24 Hours 02/23/21 02/23/21 02/23/21 02/23/21 11:00 14:59 15:00 19:00 Temp 98.1 98.4 98.0 98.1 98.4 98.0 Pulse 76 76 75 67 Resp 18 18 17 B/P (MAP) 130/73 (92) 130/73 122/72 (89) 130/68 (88) Pulse Ox 91 93 O2 Delivery Room Air Room Air Room Air O2 Flow Rate 99.0 02/23/21 02/23/21 02/23/21 02/23/21 19:33 20:21 20:51 22:35 Temp 97.7 97.7 Pulse 67 Resp 18 18 17 B/P (MAP) 134/73 (93) Pulse Ox 93 93 98 O2 Delivery Room Air Room Air Room Air Room Air O2 Flow Rate 99.0 02/24/21 02/24/21 02:42 07:15 Temp 97.8 98.4 97.8 98.4 Pulse 69 70 Resp 17 16 B/P (MAP) 132/72 (92) 160/77 (104) Pulse Ox 95 O2 Delivery Room Air Room Air O2 Flow Rate 98.0 Justicifation of Admission Dx: Justifications for Admission: Justification of Admission Dx: N/A JACQUELINE VILLASEÑOR MD Feb 24, 2021 09:54
[2021-02-24] MEDS: CLOPIDOGREL BISULFATE 75 MG TABLET PO SCH (10:11)
[2021-02-24] MEDS: CALCIUM CARB/VIT D3 500/200 TABLET. PO SCH (10:11)
[2021-02-24] MEDS: MULTIVITAMIN with MINERAL TABLET. PO SCH (10:11)
[2021-02-24 10:54] VITALS: BP 139/76
--- NOTE | 2021-02-24 11:29 | PDOC ---
[employer] PROGRESS NOTE Date of Service DOS: DATE: 02/24/21 TIME: 11:26 Chief Complaint Chief Complaint Generalized weakness secondary to uncontrolled hypothyroidism with TSH of 54 Constipation likely secondary to uncontrolled hypothyroidism Large hematoma within the right lateral abdominal wall musculature spanning 23 x 14 x 8 cm. No clear active extravasation. Patient with left lung adenocarcinoma status post radiation treatment completed on 12/2019. MRI of the brain and CT abdomen did not show any metastasis from [facility] records. Moderate centrilobular emphysema. Trace bilateral pleural effusions. 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 Will start here at 112 MCG. Continue bowel regimen PT OT modalities Appreciate general surgery recommendationsno surgical intervention at this time due to lack of extravasation or bleeding Obtain [facility] records DuoNebs as needed if there is dyspnea or hypoxia Hold for DVT prophylaxis Protonix GI prophylaxis ADA diet CODE STATUS full Discussed with RN and SW Disposition inpatient management as above DPOA: Daughter, Whitney Sneed History of Present Illness History of Present Illness 80 year old female hypothyroid, hyperlipedimia, hypertension presents for evaluation of right sided abdominal pain and constipation. Patient with recent hospitalization for COVID at [facility]-- Admitted on Jan 31 and Discharged Feb 18. Patients hospitalization was complicated with Right abdominal wall hematoma. Family choose to have patient discharged home vs rehab. Daughter states since discharge patient is not as active and with decreased appetite. Daughter seem to be mainly concerned that patient has not had a bowel movement--- stating since Jan 31 patient has had only 1 BM and she is requesting patient to be "cleaned out" Patients only complains of right sided abdominal pain. She denies any chest pain or shortness of breath. At the time of my evaluation, patient was unable to provide much history or reasons why she is at the hospital and why she was at . I attempted to call the daughter Whitney Sneed, phone number [phone] without any success. 02/22/2021 No acute events overnight. Patient seen and examined bedside. Patient states that she is feeling somewhat better and her abdominal pain has somewhat impr corona. However, she is still unable to elaborate on why she was at [facility]. Attempted to call daughter for the 2nd time and still no response. Pending records to be faxed over. Patient's chart, labs, images were reviewed and discussed with RN 02/23/2021 No acute events overnight. Patient seen and examined bedside. No changes in her mental status or abdominal discomfort. No reported bowel movements yet. Continue bowel regimen. records are obtained and it appears that patient was admitted for COVID-19 pneumonia and developed a abdominal wall hematoma at that time. She has been on aspirin and Plavix for history of stroke that she suffered last year. Family was actually upset with the doctors at because they would not start her on ivermectin. This was documented in the records faxed from . She was actually recommended for patient to go to rehab however family decided to take patient home. She was evaluated by endocrinology, surgery and neurology at . She was started on levothyroxine 75 mcg at the time. General surgery was also consulted for the abdominal wall hematoma there was no surgical intervention although they did consider possible IR for drainage. Neurology was also consulted but there was no new changes in her infarct and she was resumed on her aspirin and plvix. Patient's chart, labs, images were reviewed and discussed with RN 02/24/2021: No acute events overnight, afebrile. Per general surgery, hematoma appears stable and should regress over time. Worked with physical therapy and recommended SNU. Will obtain COVID-19 test for anticipatory discharge to senior care facility. Vitals/I&O Vitals/I&O: Vital Signs Date Time Temp Pulse Resp B/P (MAP) Pulse Ox O2 Delivery O2 Flow Rate FiO2 02/24/21 10:54 97.9 73 18 139/76 (97) 96 Room Air 97.9 02/24/21 02:42 98.0 Physical Exam General: Alert Heart: Regular rate Lungs: Clear Abdomen: Soft (mass on right side, less tender) Extremities: No clubbing, No cyanosis Skin: No rashes, No breakdown Labs Labs: Laboratory Tests Test 02/24/21 06:20 White Blood Count 6.9 x10^3/uL (4.0-11.0) Red Blood Count 3.14 x10^6/uL (3.50-5.40) Hemoglobin 8.8 g/dL (12.0-15.5) Hematocrit 27.9 % (36.0-47.0) Mean Corpuscular Volume 89 fL (79-100) Mean Corpuscular Hemoglobin 28 pg (25-35) Mean Corpuscular Hemoglobin Concent 32 g/dL (31-37) Red Cell Distribution Width 20.0 % (11.5-14.5) Platelet Count 252 x10^3/uL (140-400) Neutrophils (%) (Auto) 78 % (31-73) Lymphocytes (%) (Auto) 12 % (24-48) Monocytes (%) (Auto) 7 % (0-9) Eosinophils (%) (Auto) 2 % (0-3) Basophils (%) (Auto) 1 % (0-3) Neutrophils # (Auto) 5.4 x10^3/uL (1.8-7.7) Lymphocytes # (Auto) 0.9 x10^3/uL (1.0-4.8) Monocytes # (Auto) 0.5 x10^3/uL (0.0-1.1) Eosinophils # (Auto) 0.1 x10^3/uL (0.0-0.7) Basophils # (Auto) 0.0 x10^3/uL (0.0-0.2) Sodium Level 142 mmol/L (136-145) Potassium Level 3.4 mmol/L (3.5-5.1) Chloride Level 108 mmol/L (98-107) Carbon Dioxide Level 26 mmol/L (21-32) Anion Gap 8 (6-14) Blood Urea Nitrogen 8 mg/dL (7-20) Creatinine 0.8 mg/dL (0.6-1.0) Estimated GFR (Cockcroft-Gault) 83.9 Glucose Level 72 mg/dL (70-99) Calcium Level 8.1 mg/dL (8.5-10.1) Magnesium Level 2.0 mg/dL (1.8-2.4) Assessment and Plan Assessmemt and Plan Problems Medical Problems: (1) Abdominal pain Status: Acute (2) Constipation Status: Acute (3) Generalized weakness Status: Acute (4) Hematoma Status: Acute Comment Review of Relevant I have reviewed the following items rehan (where applicable) has been applied. Medications: Current Medications Medications (Trade) Dose Ordered Sig/Gagan Route PRN Reason Start Time Stop Time Status Last Admin Dose Admin Atorvastatin Calcium (Lipitor) 40 mg QHS PO 02/23/21 21:00 02/23/21 20:21 Clopidogrel Bisulfate (Plavix) 75 mg DAILYWBKFT PO 02/24/21 08:00 02/24/21 10:11 Justifications for Admission Other Justification Generalized weakness, abdominal wall hematoma PAMELA HUNT MD Feb 24, 2021 11:29
[2021-02-24 15:09] VITALS: BP 130/70
--- NOTE | 2021-02-24 15:16 | NUR ---
SW following. Discussed with RN, pt from home with family, room air, regular diet, rapid COVID-19 negative. Therapy recommending SNF. SW met with pt and pt's family at bedside, they are agreeable to SNF but want one that will not have a quarantine due to pt being unvaccinated. Family report pt had COVID earlier this month so cannot get the vaccine anyway. Family and pt do not want the vaccine regardless. SW waiting to hear from [facility] about quarantine status since pt recently had COVID. SW trying to reach [facility] to determine also, however phone line down. [facility] require a quarantine. SW awaiting same determination RE recent COVID dx on whether pt has to quarantine. [facility] require quarantine but will allow visits in the pt's room during the quarantine. NAVIN will continue to follow. Addendum: 02/24/21 at 1609 by PHILLIP HOLDEN NAVIN provided list of the following facilities to pt's daughter at bedside; [facility], [facility], [place], [facility], [facility]. Awaiting choice from family. NAVIN will continue to follow.
[2021-02-24 19:00] VITALS: BP 117/60
[2021-02-24] MEDS: oxyCODONE/APAP 5/325 1 TAB TABLET PO PRN (19:43)
[2021-02-24] MEDS: ATORVASTATIN CALCIUM 40 MG TABLET. PO SCH (19:43)
[2021-02-24 22:41] VITALS: BP 121/75
[2021-02-25 02:46] VITALS: BP 128/70
[2021-02-25] MEDS: POLYETHYLENE GLYCOL 3350 17 GM PACKET. PO SCH ×3 (04:54→12:00)
[2021-02-25] MEDS: LEVOTHYROXINE 112 MCG TABLET PO SCH (04:54)
[2021-02-25] MEDS: PANTOPRAZOLE IV PUSH 40 MG VIAL. IVP SCH (04:54)
[2021-02-25 07:14] VITALS: BP 123/78
--- NOTE | 2021-02-25 08:49 | PDOC ---
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 Also had a lacunar stroke in July Recent COVID pneumonia, unvaccinated Generalized weakness, uncontrolled hypothyroidism, constipation, large right lateral abdominal wall hematoma, history of left lung adenocarcinoma status post radiation treatment (MRI of the brain and CT abdomen negative for metastasis at records), ccentrilobular emphysema, trace bilateral pleural effusions, multiple hepatic cysts Recent history of COVID-19 pneumonia at [facility] Plan Continue aspirin and clopidogrel, switch to just the latter after 30 days Atorvastatin Stop smoking. Get COVID vaccine at appropriate time Neurology will follow at intervals Subjective Does not feel like eating breakfast Objective Vital Signs Date Time Temp Pulse Resp B/P (MAP) Pulse Ox O2 Delivery O2 Flow Rate FiO2 02/25/21 07:14 98.3 78 18 123/78 (93) 96 Room Air 98.3 02/24/21 20:15 98.0 Intake and Output 02/25/21 07:00 Intake Total 2160 ml Balance 2160 ml Intake Oral 2160 ml # Voids 6 PHYSICAL EXAM Alert. Oriented to place and person, does not know date. PERRL. EOMI. CN: no focal findings. Muscle tone: normal. Muscle strength: 4/5, a little weaker on the left DTR: 2+ Plantar reflex: flexor Gait: not examined in bed. Sensory exam: no abnormal findings. No cerebellar signs elicited. Review of Relevant I have reviewed the following items rehan (where applicable) has been applied. Labs Laboratory Tests Test 02/24/21 06:20 02/24/21 12:25 White Blood Count 6.9 x10^3/uL (4.0-11.0) Red Blood Count 3.14 x10^6/uL (3.50-5.40) Hemoglobin 8.8 g/dL (12.0-15.5) Hematocrit 27.9 % (36.0-47.0) Mean Corpuscular Volume 89 fL (79-100) Mean Corpuscular Hemoglobin 28 pg (25-35) Mean Corpuscular Hemoglobin Concent 32 g/dL (31-37) Red Cell Distribution Width 20.0 % (11.5-14.5) Platelet Count 252 x10^3/uL (140-400) Neutrophils (%) (Auto) 78 % (31-73) Lymphocytes (%) (Auto) 12 % (24-48) Monocytes (%) (Auto) 7 % (0-9) Eosinophils (%) (Auto) 2 % (0-3) Basophils (%) (Auto) 1 % (0-3) Neutrophils # (Auto) 5.4 x10^3/uL (1.8-7.7) Lymphocytes # (Auto) 0.9 x10^3/uL (1.0-4.8) Monocytes # (Auto) 0.5 x10^3/uL (0.0-1.1) Eosinophils # (Auto) 0.1 x10^3/uL (0.0-0.7) Basophils # (Auto) 0.0 x10^3/uL (0.0-0.2) Sodium Level 142 mmol/L (136-145) Potassium Level 3.4 mmol/L (3.5-5.1) Chloride Level 108 mmol/L (98-107) Carbon Dioxide Level 26 mmol/L (21-32) Anion Gap 8 (6-14) Blood Urea Nitrogen 8 mg/dL (7-20) Creatinine 0.8 mg/dL (0.6-1.0) Estimated GFR (Cockcroft-Gault) 83.9 Glucose Level 72 mg/dL (70-99) Calcium Level 8.1 mg/dL (8.5-10.1) Magnesium Level 2.0 mg/dL (1.8-2.4) SARS-CoV-2 Antigen (Rapid) Negative (NEGATIVE) Laboratory Tests Test 02/24/21 12:25 SARS-CoV-2 Antigen (Rapid) Negative (NEGATIVE) Medications Current Medications Sodium Chloride 1,000 ml @ 1,000 mls/hr 1X ONCE IV Last administered on 02/20/21at 23:08; Start 02/20/21 at 23:30; Stop 02/21/21 at 00:29; Status DC Sodium Chloride 1,000 ml @ 1,000 mls/hr 1X ONCE IV ; Start 02/20/21 at 23:30; Stop 02/21/21 at 00:29; Status DC Iohexol (Omnipaque 300 Mg/ml) 75 ml 1X ONCE IV Last administered on 02/20/21at 23:46; Start 02/21/21 at 00:00; Stop 02/21/21 at 00:01; Status DC Info (CONTRAST GIVEN -- Rx MONITORING) 1 each PRN DAILY PRN MC SEE COMMENTS; Start 02/20/21 at 23:45; Stop 02/22/21 at 23:44; Status DC Sennosides (Senna) 17.2 mg PRN BID PRN PO CONSTIPATION; Start 02/21/21 at 08:45 Docusate Sodium (Colace) 100 mg PRN DAILY PRN PO HARD STOOLS; Start 02/21/21 at 08:45 Ondansetron HCl (Zofran) 4 mg PRN Q6HRS PRN IVP NAUSEA/VOMITING; Start 02/21/21 at 08:45 Dextrose (Dextrose 50%-Water Syringe) 12.5 gm PRN Q15MIN PRN IV SEE COMMENTS; Start 02/21/21 at 08:45 Acetaminophen (Tylenol) 650 mg PRN Q4HRS PRN PO TEMP OVER 100.4F OR MILD PAIN; Start 02/21/21 at 08:45 Pantoprazole Sodium (PROTONIX VIAL for IV PUSH) 40 mg DAILYAC IVP Last administered on 02/25/21at 04:54; Start 02/21/21 at 09:00 Oxycodone/ Acetaminophen (Percocet 5/325) 1 tab PRN Q4HRS PRN PO MODERATE PAIN Last administered on 02/24/21at 19:43; Start 02/21/21 at 08:45 Morphine Sulfate (Morphine Sulfate) 1 mg PRN Q1HR PRN IV PAIN-SEE COMMENTS; Start 02/21/21 at 08:45 Morphine Sulfate (Morphine Sulfate) 2 mg PRN Q2HR PRN IVP SEVERE PAIN 7-10; Start 02/21/21 at 08:45; Stop 02/22/21 at 08:44; Status DC Prochlorperazine Edisylate (Compazine) 10 mg PRN Q6HRS PRN IV NAUSEA/VOMITING; Start 02/21/21 at 08:45 Polyethylene Glycol (miraLAX PACKET) 17 gm Q6HRS PO Last administered on 02/25/21at 04:54; Start 02/21/21 at 09:00 Potassium Chloride (Klor-Con) 40 meq 1X ONCE PO Last administered on 02/22/21at 11:10; Start 02/22/21 at 09:30; Stop 02/22/21 at 09:31; Status DC Amlodipine Besylate (Norvasc) 5 mg DAILY PO Last administered on 02/24/21at 10:11; Start 02/23/21 at 10:00 Atorvastatin Calcium (Lipitor) 40 mg QHS PO Last administered on 02/24/21at 19:43; Start 02/23/21 at 21:00 Levothyroxine Sodium (Synthroid) 75 mcg DAILY06 PO ; Start 02/23/21 at 10:00; Stop 02/23/21 at 10:33; Status DC Calcium/Vitamin D (Oscal D 500mg/ 200uts) 1 tab DAILY PO Last administered on 02/24/21at 10:11; Start 02/23/21 at 10:00 Multivitamins (Thera M Plus) 1 tab DAILY PO Last administered on 02/24/21at 10:11; Start 02/23/21 at 10:00 Levothyroxine Sodium (Synthroid) 112 mcg DAILY06 PO Last administered on 02/25/21at 04:54; Start 02/23/21 at 11:00 Clopidogrel Bisulfate (Plavix) 75 mg DAILYWBKFT PO Last administered on 02/24/21at 10:11; Start 02/24/21 at 08:00 Active Scripts Active Reported Calcium 1,000 + D3 Caplet (Calcium Carbonate/Vitamin D3) 1 Each Tablet 1 Tab PO DAILY 30 Days Multivitamins With Iron (Multivitamin W/Iron, Minerals) 1 Each Tab.chew 1 Tab PO DAILY 30 Days Atorvastatin Calcium 40 Mg Tablet 1 Tab PO DAILY Atorvastatin Calcium 80 Mg Tablet 80 Mg PO QHS Amlodipine Besylate 10 Mg Tablet 10 Mg PO DAILY Levothyroxine Sodium 75 Mcg Tablet 1 Tab PO DAILY Aspirin Ec (Aspirin) 81 Mg Tablet.dr 1 Tab PO DAILY Clopidogrel (Clopidogrel Bisulfate) 75 Mg Tablet 1 Tab PO DAILY Vitamin D2 (Ergocalciferol (Vitamin D2)) 1,250 Mcg Capsule 1,250 Mcg PO WEEKLY Vitals/I & O Vital Sign - Last 24 Hours 9/27/21 9/27/21 9/27/21 9/27/21 10:11 10:54 15:09 19:00 Temp 97.9 98.0 97.8 97.9 98.0 97.8 Pulse 70 73 78 78 Resp 18 20 18 B/P (MAP) 160/77 139/76 (97) 130/70 (90) 117/60 (79) Pulse Ox 96 98 96 O2 Delivery Room Air Room Air Room Air 02/24/21 02/24/21 02/24/21 02/24/21 19:43 20:00 20:15 22:41 Temp 97.9 97.9 Pulse 84 Resp 18 16 17 B/P (MAP) 121/75 (90) Pulse Ox 96 96 94 O2 Delivery Room Air Room Air Room Air Room Air O2 Flow Rate 98.0 98.0 02/25/21 02/25/21 02:46 07:14 Temp 97.7 98.3 97.7 98.3 Pulse 85 78 Resp 17 18 B/P (MAP) 128/70 (89) 123/78 (93) Pulse Ox 95 96 O2 Delivery Room Air Room Air Intake and Output 02/24/21 02/24/21 02/25/21 15:00 23:00 07:00 Intake Total 360 ml 1800 ml Balance 360 ml 1800 ml Justicifation of Admission Dx: Justifications for Admission: Justification of Admission Dx: N/A JACQUELINE VILLASEÑOR MD Feb 25, 2021 08:49
[2021-02-25] MEDS: MULTIVITAMIN with MINERAL TABLET. PO SCH (09:32)
[2021-02-25] MEDS: CLOPIDOGREL BISULFATE 75 MG TABLET PO SCH (09:33)
[2021-02-25] MEDS: CALCIUM CARB/VIT D3 500/200 TABLET. PO SCH (09:33)
[2021-02-25 10:54] VITALS: BP 119/71
--- NOTE | 2021-02-25 13:24 | NUR ---
SW following. Discussed with RN, family requesting [facility]. SW phoned and faxed, pt accepted. Awaiting discharge orders. RN notified. NAVIN will continue to follow. Addendum: 02/25/21 at 1453 by PHILLIP HOLDEN Discharge orders faxed to [facility]. [facility] ANDREA, Frank Spencer and pt's family notified. No other SW needs at this time.
--- NOTE | 2021-02-25 13:58 | PDOC ---
[employer] PROGRESS NOTE Date of Service DOS: DATE: 02/25/21 TIME: 13:57 Chief Complaint Chief Complaint Generalized weakness secondary to uncontrolled hypothyroidism with TSH of 54 Constipation likely secondary to uncontrolled hypothyroidism Large hematoma within the right lateral abdominal wall musculature spanning 23 x 14 x 8 cm. No clear active extravasation. Patient with left lung adenocarcinoma status post radiation treatment completed on 12/2019. MRI of the brain and CT abdomen did not show any metastasis from [facility] records. Moderate centrilobular emphysema. Trace bilateral pleural effusions. 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 Will start here at 112 MCG. Continue bowel regimen PT OT modalities Appreciate general surgery recommendationsno surgical intervention at this time due to lack of extravasation or bleeding Obtain [facility] records DuoNebs as needed if there is dyspnea or hypoxia Hold for DVT prophylaxis Protonix GI prophylaxis ADA diet CODE STATUS full Discussed with RN and SW Disposition inpatient management as above DPOA: Daughter, Whitney Sneed History of Present Illness History of Present Illness 80 year old female hypothyroid, hyperlipedimia, hypertension presents for evaluation of right sided abdominal pain and constipation. Patient with recent hospitalization for COVID at [facility]-- Admitted on Jan 31 and Discharged Feb 18. Patients hospitalization was complicated with Right abdominal wall hematoma. Family choose to have patient discharged home vs rehab. Daughter states since discharge patient is not as active and with decreased appetite. Daughter seem to be mainly concerned that patient has not had a bowel movement--- stating since Jan 31 patient has had only 1 BM and she is requesting patient to be "cleaned out" Patients only complains of right sided abdominal pain. She denies any chest pain or shortness of breath. At the time of my evaluation, patient was unable to provide much history or reasons why she is at the hospital and why she was at . I attempted to call the daughter Whitney Sneed, phone number [phone] without any success. 02/22/2021 No acute events overnight. Patient seen and examined bedside. Patient states that she is feeling somewhat better and her abdominal pain has somewhat impr corona. However, she is still unable to elaborate on why she was at [facility]. Attempted to call daughter for the 2nd time and still no response. Pending records to be faxed over. Patient's chart, labs, images were reviewed and discussed with RN 02/23/2021 No acute events overnight. Patient seen and examined bedside. No changes in her mental status or abdominal discomfort. No reported bowel movements yet. Continue bowel regimen. records are obtained and it appears that patient was admitted for COVID-19 pneumonia and developed a abdominal wall hematoma at that time. She has been on aspirin and Plavix for history of stroke that she suffered last year. Family was actually upset with the doctors at because they would not start her on ivermectin. This was documented in the records faxed from . She was actually recommended for patient to go to rehab however family decided to take patient home. She was evaluated by endocrinology, surgery and neurology at . She was started on levothyroxine 75 mcg at the time. General surgery was also consulted for the abdominal wall hematoma there was no surgical intervention although they did consider possible IR for drainage. Neurology was also consulted but there was no new changes in her infarct and she was resumed on her aspirin and plvix. Patient's chart, labs, images were reviewed and discussed with RN 02/24/2021: No acute events overnight, afebrile. Per general surgery, hematoma appears stable and should regress over time. Worked with physical therapy and recommended SNU. Will obtain COVID-19 test for anticipatory discharge to residential facility. 02/25/2021: No acute events overnight. Patient has no complaints. She has been accepted at [facility] for SNU. COVID-19 test negative. Will discharge to rehab today. Greater than 30 minutes spent managing the discharge of this patient. Vitals/I&O Vitals/I&O: Vital Signs Date Time Temp Pulse Resp B/P (MAP) Pulse Ox O2 Delivery O2 Flow Rate FiO2 02/25/21 10:54 97.6 80 20 119/71 (87) 97 Room Air 97.6 02/24/21 20:15 98.0 I & O 02/24/21 02/24/21 02/25/21 15:00 23:00 07:00 Intake Total 360 ml 1800 ml Balance 360 ml 1800 ml Physical Exam General: Alert Heart: Regular rate Lungs: Clear Abdomen: Soft (mass on right side, less tender) Extremities: No clubbing, No cyanosis Skin: No rashes, No breakdown Assessment and Plan Assessmemt and Plan Problems Medical Problems: (1) Abdominal pain Status: Acute (2) Constipation Status: Acute (3) Generalized weakness Status: Acute (4) Hematoma Status: Acute Comment Review of Relevant I have reviewed the following items rehan (where applicable) has been applied. Justifications for Admission Other Justification Generalized weakness, abdominal wall hematoma PAMELA HUNT MD Feb 25, 2021 13:58
--- NOTE | 2021-02-25 14:05 | PDOC3 ---
Discharge Summary Visit Information Date of Admission: Feb 21, 2021 Date of Discharge: Feb 25, 2021 Final Diagnosis Problems Medical Problems: (1) Abdominal pain Status: Acute (2) Constipation Status: Acute (3) Generalized weakness Status: Acute (4) Hematoma Status: Acute Brief Hospital Course Allergies Allergies Coded Allergies Type Severity Reaction Last Updated Verified No Known Drug Allergies 02/20/21 No Vital Signs Vital Signs Date Time Temp Pulse Resp B/P (MAP) Pulse Ox O2 Delivery O2 Flow Rate FiO2 02/25/21 10:54 97.6 80 20 119/71 (87) 97 Room Air 97.6 02/24/21 20:15 98.0 Lab Results Laboratory Tests Test 02/24/21 06:20 02/24/21 12:25 White Blood Count 6.9 x10^3/uL (4.0-11.0) Red Blood Count 3.14 x10^6/uL (3.50-5.40) Hemoglobin 8.8 g/dL (12.0-15.5) Hematocrit 27.9 % (36.0-47.0) Mean Corpuscular Volume 89 fL (79-100) Mean Corpuscular Hemoglobin 28 pg (25-35) Mean Corpuscular Hemoglobin Concent 32 g/dL (31-37) Red Cell Distribution Width 20.0 % (11.5-14.5) Platelet Count 252 x10^3/uL (140-400) Neutrophils (%) (Auto) 78 % (31-73) Lymphocytes (%) (Auto) 12 % (24-48) Monocytes (%) (Auto) 7 % (0-9) Eosinophils (%) (Auto) 2 % (0-3) Basophils (%) (Auto) 1 % (0-3) Neutrophils # (Auto) 5.4 x10^3/uL (1.8-7.7) Lymphocytes # (Auto) 0.9 x10^3/uL (1.0-4.8) Monocytes # (Auto) 0.5 x10^3/uL (0.0-1.1) Eosinophils # (Auto) 0.1 x10^3/uL (0.0-0.7) Basophils # (Auto) 0.0 x10^3/uL (0.0-0.2) Sodium Level 142 mmol/L (136-145) Potassium Level 3.4 mmol/L (3.5-5.1) Chloride Level 108 mmol/L (98-107) Carbon Dioxide Level 26 mmol/L (21-32) Anion Gap 8 (6-14) Blood Urea Nitrogen 8 mg/dL (7-20) Creatinine 0.8 mg/dL (0.6-1.0) Estimated GFR (Cockcroft-Gault) 83.9 Glucose Level 72 mg/dL (70-99) Calcium Level 8.1 mg/dL (8.5-10.1) Magnesium Level 2.0 mg/dL (1.8-2.4) SARS-CoV-2 RNA ([place]) Negative (Negative) SARS-CoV-2 Antigen (Rapid) Negative (NEGATIVE) Brief Hospital Course Ms. Walters is a 80 old female who presents with right sided abdominal pain and constipation. She had recent hospitalization for COVID at [facility] on Jan 31 and Discharged Feb 18; this hospitalization was complicated with right abdominal wall hematoma. Consultation was placed to general surgery. Per gener al surgery, no surgical recs for hematoma, appears stable; should regress over time. Consultation was placed to neurology for secondary stroke prevention. She was recommended to continue aspirin and clopidogrel, switch to just the latter after 30 days; continue Atorvastatin. She was excepted to [facility] for skilled rehab. Discharge Information Condition at Discharge: Stable Disposition/Orders: D/C to Another Facility Scheduled Amlodipine Besylate (Amlodipine Besylate) 10 Mg Tablet, 10 MG PO DAILY for hypertension, (Reported) Entered as Reported by: BEVERLEY CORDOVA on 02/22/211838 Last Taken: Unknown Dose on 02/18/21 Last Action: Continued on 02/23/21922 by HAN JANSEN MD Aspirin (Aspirin Ec) 81 Mg Tablet., 1 TAB PO DAILY for stroke prevention, #30 Ref 3 (Reported) Entered as Reported by: BEVERLEY CORDOVA on 02/22/211838 Last Action: HELD on 02/23/21922 by HAN JANSEN MD Atorvastatin Calcium (Atorvastatin Calcium) 80 Mg Tablet, 80 MG PO QHS for FOR HIGH CHOLESTEROL, (Reported) Entered as Reported by: BEVERLEY CORDOVA on 02/22/211838 Last Action: HELD on 02/23/21922 by HAN JANSEN MD Atorvastatin Calcium (Atorvastatin Calcium) 40 Mg Tablet, 1 TAB PO DAILY for hyperlipidemia, #30 Ref 5 (Reported) Entered as Reported by: BEVERLEY CORDOVA on 02/22/211838 Last Taken: Unknown Dose on 02/18/21 Last Action: Continued on 02/23/21922 by HAN JANSEN MD Calcium Carbonate/Vitamin D3 (Calcium 1,000 + D3 Caplet) 1 Each Tablet, 1 TAB PO DAILY for supplement for 30 Days, #30 Ref 0 (Reported) Entered as Reported by: BEVERLEY CORDOVA on 02/22/211838 Last Action: Converted on 02/23/21922 by HAN JANSEN MD Clopidogrel Bisulfate (Clopidogrel) 75 Mg Tablet, 1 TAB PO DAILY for stroke prevention, #90 Ref 1 (Reported) Entered as Reported by: BEVERLEY CORDOVA on 02/22/211838 Last Action: HELD on 02/23/21922 by HAN JANSEN MD Ergocalciferol (Vitamin D2) (Vitamin D2) 1,250 Mcg Capsule, 1,250 MCG PO WEEKLY for Vit D deficiency, (Reported) Entered as Reported by: BEVERLEY CORDOVA on 02/22/211838 Last Action: New Order on 02/22/211838 by BEVERLEY CORDOVA Levothyroxine Sodium (Levothyroxine Sodium) 75 Mcg Tablet, 1 TAB PO DAILY for hypothyroidism, #30 Ref 5 (Reported) Entered as Reported by: BEVERLEY CORDOVA on 02/22/211838 Last Taken: Unknown Dose on 02/18/21 Last Action: Continued on 02/23/21922 by HAN JANSEN MD Multivitamin W/Iron, Minerals (Multivitamins With Iron) 1 Each Tab.chew, 1 TAB PO DAILY for supplement for 30 Days, #30 Ref 0 (Reported) Entered as Reported by: BEVERLEY CORDOVA on 02/22/211838 Last Taken: Unknown Dose on 02/18/21 Last Action: Converted on 02/23/21922 by HAN JANSEN MD Justicifation of Admission Dx: Justifications for Admission: Justification of Admission Dx: N/A PAMELA HUNT MD Feb 25, 2021 14:05
--- NOTE | 2021-02-25 14:08 | SNU/HH DC ---
DISCHARGE ORDERS DISCHARGE INFORMATION: DISCHARGE DATE: Feb 25, 2021 FINAL DIAGNOSIS Problems Medical Problems: (1) Abdominal pain Status: Acute (2) Constipation Status: Acute (3) Generalized weakness Status: Acute (4) Hematoma Status: Acute CONDITION ON DISCHARGE: Stable CODE STATUS: Code Status: Full [facility]: SNF STAY <30 DAYS: Yes POST DISCHARGE ORDERS: ACTIVITY ORDERS: Activity as tolerated WEIGHT BEARING STATUS: As tolerated DIET AFTER DISCHARGE: Cardiac TREATMENT/EQUIPMENT ORDERS: ADAPTIVE EQUIPMENT NEEDED: Four wheeled walker Physical Therapy For: Evalulation/Treatment Occupational Therapy For: Evaluation/Treatment DISCHARGE MEDICATIONS: Home Meds Reported Medications Calcium Carbonate/Vitamin D3 (CALCIUM 1,000 + D3 CAPLET) 1 Each Tablet, 1 TAB PO DAILY for supplement for 30 Days, #30 TAB 0 Refills 02/22/21 Multivitamin W/Iron, Minerals (MULTIVITAMINS WITH IRON) 1 Each Tab.chew, 1 TAB PO DAILY for supplement for 30 Days, #30 TAB 0 Refills 02/22/21 Atorvastatin Calcium (ATORVASTATIN CALCIUM) 40 Mg Tablet, 1 TAB PO DAILY for hyperlipidemia, #30 TAB 5 Refills 02/22/21 Atorvastatin Calcium (Atorvastatin Calcium) 80 Mg Tablet, 80 MG PO QHS for FOR HIGH CHOLESTEROL, TAB 02/22/21 Amlodipine Besylate (AMLODIPINE BESYLATE) 10 Mg Tablet, 10 MG PO DAILY for hyper tension, TAB 02/22/21 Levothyroxine Sodium (LEVOTHYROXINE SODIUM) 75 Mcg Tablet, 1 TAB PO DAILY for hypothyroidism, #30 TAB 5 Refills 02/22/21 Aspirin (ASPIRIN EC) 81 Mg Tablet.dr, 1 TAB PO DAILY for stroke prevention, #30 TAB 3 Refills 02/22/21 Clopidogrel Bisulfate (CLOPIDOGREL) 75 Mg Tablet, 1 TAB PO DAILY for stroke prevention, #90 TAB 1 Refill 02/22/21 Ergocalciferol (Vitamin D2) (Vitamin D2) 1,250 Mcg Capsule, 1250 MCG PO WEEKLY for Vit D deficiency, CAP 02/22/21 PAMELA HUNT MD Feb 25, 2021 14:08
[2021-02-25] MEDS ORDERED: OXYC1TAB15 PO (14:13)
[2021-02-25] MEDS ORDERED: ASPI-886 PO (14:13)
--- NOTE | 2021-02-25 14:20 | SNU/HH DC ---
DISCHARGE ORDERS DISCHARGE INFORMATION: DISCHARGE DATE: Feb 25, 2021 FINAL DIAGNOSIS Problems Medical Problems: (1) Abdominal pain Status: Acute (2) Constipation Status: Acute (3) Generalized weakness Status: Acute (4) Hematoma Status: Acute CONDITION ON DISCHARGE: Stable CODE STATUS: Code Status: Full [facility]: SNF STAY <30 DAYS: Yes POST DISCHARGE ORDERS: ACTIVITY ORDERS: Activity as tolerated WEIGHT BEARING STATUS: As tolerated DIET AFTER DISCHARGE: Cardiac TREATMENT/EQUIPMENT ORDERS: ADAPTIVE EQUIPMENT NEEDED: Four wheeled walker Physical Therapy For: Evalulation/Treatment Occupational Therapy For: Evaluation/Treatment DISCHARGE MEDICATIONS: Home Meds Active Scripts Oxycodone/Apap 5-325 (PERCOCET 5-325 MG TABLET ) 1 Each Tablet, 1 TAB PO PRN Q6HRS PRN for PAIN for 7 Days, #28 TAB Prov:PAMELA HUNT MD 02/25/21 Aspirin (ASPIRIN EC) 81 Mg Tablet.dr, 1 TAB PO DAILY for stroke prevention, #30 TAB 0 Refills Prov:PAMELA HUNT MD 02/25/21 Reported Medications Calcium Carbonate/Vitamin D3 (CALCIUM 1,000 + D3 CAPLET) 1 Each Tablet, 1 TAB PO DAILY for supplement for 30 Days, #30 TAB 0 Refills 02/22/21 Multivitamin W/Iron, Minerals (MULTIVITAMINS WITH IRON) 1 Each Tab.chew, 1 TAB PO DAILY for supplement for 30 Days, #30 TAB 0 Refills 02/22/21 Atorvastatin Calcium (ATORVASTATIN CALCIUM) 40 Mg Tablet, 1 TAB PO DAILY for hyperlipidemia, #30 TAB 5 Refills 02/22/21 Amlodipine Besylate (AMLODIPINE BESYLATE) 10 Mg Tablet, 10 MG PO DAILY for hypertension, TAB 02/22/21 Levothyroxine Sodium (LEVOTHYROXINE SODIUM) 75 Mcg Tablet, 1 TAB PO DAILY for hypothyroidism, #30 TAB 5 Refills 02/22/21 Clopidogrel Bisulfate (CLOPIDOGREL) 75 Mg Tablet, 1 TAB PO DAILY for stroke prevention, #90 TAB 1 Refill 02/22/21 Ergocalciferol (Vitamin D2) (Vitamin D2) 1,250 Mcg Capsule, 1250 MCG PO WEEKLY for Vit D deficiency, CAP 02/22/21 Discontinued Reported Medications Atorvastatin Calcium (Atorvastatin Calcium) 80 Mg Tablet, 80 MG PO QHS for FOR HIGH CHOLESTEROL, TAB 02/22/21 PAMELA HUNT MD Feb 25, 2021 14:20
[2021-02-25 14:47] VITALS: BP 121/63
--- NOTE | 2021-02-25 16:57 | NUR ---
pt was discahrged to [facility] for rehab, pt was picked up by elly at 1645 and taken to [facility]. I called report at 1540 to Rosa at [facility]. Rhett Vigil RN
== END 2021-02-25 16:45 | DRG 391 ==
LOC: ER 21:47 → 5 SOUTH 02-21 02:48 → OBSVTOIN 02-21 10:15
PROVIDERS: ADMIT Internal Medicine; ATTEND Internal Medicine
DX: K59.00 Constipation, unspecified (principal); E43 Unspecified severe protein-calorie malnutrition; D68.59 Other primary thrombophilia; S30.1XXA Contusion of abdominal wall, initial encounter; J43.2 Centrilobular emphysema; Z68.21 Body mass index [BMI] 21.0-21.9, adult; E03.9 Hypothyroidism, unspecified; E55.9 Vitamin D deficiency, unspecified; E78.00 Pure hypercholesterolemia, unspecified; E78.5 Hyperlipidemia, unspecified; F17.200 Nicotine dependence, unspecified, uncomplicated; I10 Essential (primary) hypertension; I71.4 Abdominal aortic aneurysm, without rupture; I73.9 Peripheral vascular disease, unspecified; K40.20 Bilateral inguinal hernia, without obstruction or gangrene, not specified as recurrent; K76.89 Other specified diseases of liver; Z20.822 Contact with and (suspected) exposure to COVID-19; Z85.118 Personal history of other malignant neoplasm of bronchus and lung; Z86.16 Personal history of COVID-19; Z86.73 Personal history of transient ischemic attack (TIA), and cerebral infarction without residual deficits; Z87.01 Personal history of pneumonia (recurrent); Z92.3 Personal history of irradiation
CPT/HCPCS: 36415; 74177; 80048; 80053; 81001; 83690; 83735; 84100; 84443; 85025; 85610; 87426; 93005; 96360; 99406; C9113; G0378; G0379; J7030; Q9967; U0003; U0005; 92610-GN; 97110-GP; 97116-GP; 97530-GP; 99285-25

== ENCOUNTER 2021-03-24 11:35 | Emergency (ER) | payer MEDICARE, OTHER ==
[~2021-03-24] VITALS: Ht 165.1 cm; Wt 57.3 kg
[~2021-03-24 11:35] MED LIST: AMLO-187 PO; ASPI-886 PO; ATOR40TA59 PO; ATOR80TA72 PO; CALC-178 PO; CLOP75TA PO; ERGO500089 PO; LEVO75TA5 PO; MULT-471 PO; OXYC1TAB15 PO
--- NOTE | 2021-03-24 12:11 | PHYS DOC ---
Past Medical History Additional Past Medical Histor: COVID JAN 2021 Past Surgical History: Smoking Status: Current Every Day Smoker Alcohol Use: Occasionally General Adult EDM: Chief Complaint: SLURRED SPEECH HPI: HPI: Patient is a 80 year old female who was reportedly here because one of her daughters thought her speech seemed "off." This reportedly occurred yesterday. The patient denies feeling like she has any acute speech changes. She does have some chronic speech difficulty from previous stroke. She has some chronic left lower extremity weakness and some milder left upper extremity weakness from prior stroke. The patient denies chest pain, dyspnea, abdominal pain, nausea or vomiting. She denies fall, head injury, syncope, loss of consciousness. She denies neck or back pain. She does have some chronic urinary dribbling and overflow incontinence, which is unchanged. She denies fever or chills. She did not want to come to the hospital, but she did so on the insistence of one of her daughters. She does live with her daughter and feels very well cared for at [facility]. Review of Systems: Review of Systems: Constitutional: Denies fever or chills. [] Eyes: Denies change in visual acuity. [] HENT: Denies nasal congestion or sore throat. [] Respiratory: Denies cough or shortness of breath. [] Cardiovascular: Denies chest pain or edema. [] GI: Denies abdominal pain, nausea, vomiting, bloody stools or diarrhea. [] : Denies acute urinary symptoms. She has mild chronic overflow incontinence. Musculoskeletal: Denies back pain or joint pain. [] Integument: Denies rash. [] Neurologic: Denies any acute changes from baseline weakness or any acute change from baseline speech difficulty. Denies headache, dizziness, vertigo, syncope or numbness. Psychiatric: Denies depression or anxiety. [] Heart Score: C/O Chest Pain: No Risk Factors: Risk Factors: DM, Current or recent (<one month) smoker, HTN, HLP, family history of CAD, obesity. Risk Scores: Score 0 - 3: 2.5% MACE over next 6 weeks - Discharge Home Score 4 - 6: 20.3% MACE over next 6 weeks - Admit for Clinical Observation Score 7 - 10: 72.7% MACE over next 6 weeks - Early Invasive Strategies Allergies: Allergies: Allergies Coded Allergies Type Severity Reaction Last Updated Verified No Known Drug Allergies 02/20/21 No Physical Exam: PE: Constitutional: Well developed, well nourished, no acute distress, non-toxic appearance. She is smiling, resting comfortably. HENT: Normocephalic, atraumatic, bilateral external ears normal, TMs are clear bilaterally, oropharynx moist, no oral exudates, nose normal. [] Eyes: PERRL, EOMI, conjunctiva normal, no discharge. [] Neck: Normal range of motion, no tenderness, supple, trachea is midline. Cardiovascular:Heart rate regular rhythm, no murmur, +2 radial and dorsalis pedis pulses bilaterally. Lungs & Thorax: Bilateral breath sounds clear to auscultation [] Abdomen: Bowel sounds normal, soft, no tenderness, no masses, no pulsatile masses. No CVA tenderness. Skin: Warm, dry, no erythema, no rash. [] Back: No tenderness, no CVA tenderness. [] Extremities: No tenderness, no cyanosis, no clubbing, ROM intact, no edema. [] Neurologic: Alert and oriented X 3. Cranial nerves II through XII are grossly intact. She has some very mild left lower extremity weakness, with mild left limb ataxia, which she reports is chronic and unchanged for her. Otherwise, 5 out of 5 motor strength remainder of extremities. Her proximal left lower extremity has normal motor strength. No pronator drift, no dysmetria. Sensation is grossly intact. Her speech is clear and fluent here. Psychologic: Affect normal, judgement normal, mood normal. She is pleasant and cooperative. Current Patient Data: Labs: Laboratory Tests Test 03/24/21 11:40 Glucose (Fingerstick) 89 mg/dL (70-99) Vital Signs: Vital Signs Date Time Temp Pulse Resp B/P (MAP) Pulse Ox O2 Delivery O2 Flow Rate FiO2 03/24/21 11:49 98.4 75 16 175/93 (120) 98 Room Air 98.4 EKG: EKG: EKG is interpreted at 1200 Rhythm is sinus Rate is 76 bpm [place] is normal No STEMI Radiology/Procedures: Radiology/Procedures: IMAGING REPORT Signed PATIENT: KEVIN PERALES LACCOUNT: [id number] : 1940 LOCATION: ER AGE: 80 SEX: F EXAM STATUS: PRE ER ORD. PHYSICIAN: DULCE CRUZ DO REASON: weakness PROCEDURE: CT HEAD WO CONTRAST CT Head without contrast 03/24/2021 12:49 PM Indication: Reason: weakness / Spl. Instructions: / History: Comparison: None available Findings: No intracranial hemorrhage is seen. No evidence of acute territorial infarct is seen. Note that CT is limited in sensitivity for acute ischemia. Hypodensities in the bilateral basal ganglia suggest chronic lacunar infarcts. Age-related atrophic changes are noted. There is patchy periventricular and deep white matter hypoattenuation which is nonspecific, but most commonly relates to chronic small vessel disease. No abnormal extra axial fluid collection is identified. No mass effect or midline shift is seen. No acute osseous abnormalities are seen. Impression: 1. No acute intracranial process identified 2. Age-related atrophy, and evidence of chronic small vessel disease as described CT DOSING PQRS STATEMENT: One or more of the following individualized dose reduction techniques were util ized for this examination: 1. Automated exposure control 2. Adjustment of the mA and/or kV according to patient size 3. Use of iterative reconstruction technique Electronically signed by: Bharat Sue MD (03/24/2021 1:00 PM) [id number] DICTATED and SIGNED BY: HBARAT SUE MD DATE: 03/24/21 [id number] 0 Course & Med Decision Making: Course & Med Decision Making Pertinent Labs and Imaging studies reviewed. (See chart for details) The findings, differential diagnosis and plan of care are discussed with the patient. She does have findings of a urinary tract infection. First dose of p.o. Keflex is given. The patient is very anxiously awaiting discharge here. She appears to be stable for discharge. She and her daughter are comfortable with the plan for discharge home. I do recommend she contact her primary care physician to arrange for follow-up. She has ambulatory devices at home to help her with her chronic lower limb weakness. She understands that urine culture is pending, she should be notified of any need to change antibiotics based on these results. Strict return precautions are given. She verbalizes understanding. Marianne Disclaimer: Marianne Disclaimer: This electronic medical record was generated, in whole or in part, using a voice recognition dictation system. Departure Departure Impression: Primary Impression: Urinary tract infection Qualified Codes: N39.0 - Urinary tract infection, site not specified Additional Impression: History of CVA (cerebrovascular accident) Disposition: HOME / SELF CARE / HOMELESS Condition: STABLE Referrals: DELMI ENGEL MD (PCP) Patient Instructions: Urinary Tract Infection Additional Instructions: Please take the full course of your antibiotics. Please stay well-hydrated, drink plenty of clear fluids. Return to the ER immediately for any acute injury or trauma, fever of 100.4 or higher, chest pain, shortness of breath, uncontrolled vomiting, severe abdominal pain, severe back pain, if you notice any acute or changed weakness from your baseline or any other concerns. Please follow-up with your primary care physician. Scripts Cephalexin (KEFLEX) 500 Mg Capsule 1 CAP PO BID for 7 Days, #14 CAP Prov: DULCE CRUZ DO 03/24/21 DULCE CRUZ DO Mar 24, 2021 12:11
--- NOTE | 2021-03-24 13:03 | RAD ---
CT Head without contrast 03/24/2021 12:49 PM Indication: Reason: weakness / Spl. Instructions: / History: Comparison: None available Findings: No intracranial hemorrhage is seen. No evidence of acute territorial infarct is seen. Note that CT is limited in sensitivity for acute ischemia. Hypodensities in the bilateral basal ganglia bajwa ggest chronic lacunar infarcts. Age-related atrophic changes are noted. There is patchy periventricu lar and deep white matter hypoattenuation which is nonspecific, but most commonly relates to chronic small vessel disease. No abnormal extra axial fluid collection is identified. No mass effect or mid line shift is seen. No acute osseous abnormalities are seen. Impression: 1. No acute intracranial process identified 2. Age-related atrophy, and evidence of chronic small vessel disease as described CT DOSING PQRS STATEMENT: One or more of the following individualized dose reduction techniques were utilized for this examinat ion: 1. Automated exposure control 2. Adjustment of the mA and/or kV according to patient size 3. Use of iterative reconstruction technique Electronically signed by: Bharat Michele MD (03/24/2021 1:00 PM) [id number]
[2021-03-24 13:29] LABS: BASO # 0.1 x10^3/uL (0.0-0.2); BASO % 1 % (0-3); EOS # 0.1 x10^3/uL (0.0-0.7); EOS % 1 % (0-3); HEMATOCRIT 34.6 % (36.0-47.0); HEMOGLOBIN 11.2 g/dL (12.0-15.5); LYMPH # 1.2 x10^3/uL (1.0-4.8); LYMPH % 19 % (24-48); MEAN CORPUSCULAR HEMOGLOBIN 27 pg (25-35); MEAN CORPUSCULAR HGB CONC 32 g/dL (31-37); MEAN CORPUSCULAR VOLUME 84 fL (79-100); MONO # 0.6 x10^3/uL (0.0-1.1); MONO % 10 % (0-9); NEUT # 4.3 x10^3/uL (1.8-7.7); NEUT % 69 % (31-73); PLATELET COUNT 393 x10^3/uL (140-400); RED BLOOD COUNT 4.14 x10^6/uL (3.50-5.40); RED CELL DISTRIBUTION WIDTH 19.3 % (11.5-14.5); WHITE BLOOD COUNT 6.3 x10^3/uL (4.0-11.0)
[2021-03-24 13:40] LABS: CALCIUM 8.7 mg/dL (8.5-10.1); CREATININE 0.7 mg/dL (0.6-1.0); GFR 97.9
[2021-03-24 13:47] LABS: ALBUMIN 2.8 g/dL (3.4-5.0); ALBUMIN/GLOBULIN RATIO 0.6 (1.0-1.7); MAGNESIUM 2.2 mg/dL (1.8-2.4); TOTAL BILIRUBIN 0.5 mg/dL (0.2-1.0); TOTAL PROTEIN 7.7 g/dL (6.4-8.2)
[2021-03-24 14:18] LABS: BILIRUBIN,URINE NEGATIVE (NEG); CLARITY,URINE CLEAR; COLOR,URINE YELLOW; NITRITE,URINE POSITIVE (NEG); PH,URINE 6.5 (<5.0-8.0); PROTEIN,URINE NEGATIVE (NEG-TRACE)
[2021-03-24 14:30] LABS: BACTERIA,URINE MODERATE /HPF (0-FEW); HYALINE CASTS, URINE OCCASIONAL /HPF; WBC,URINE 20-40 /HPF (0-4)
[2021-03-24 15:20] VITALS: BP 195/91
[2021-03-24] MEDS ORDERED: CEPH500C PO (15:40)
[2021-03-24] MEDS ORDERED: CEPHALEXIN 250 MG CAPSULE. PO SCH (15:45)
== END 2021-03-24 16:01 | disposition home or self-care (01) ==
LOC: ER 11:35
DX: N39.0 Urinary tract infection, site not specified (principal); Z86.73 Personal history of transient ischemic attack (TIA), and cerebral infarction without residual deficits; F17.200 Nicotine dependence, unspecified, uncomplicated
CPT/HCPCS: 36415; 70450; 80053; 81001; 82962; 83735; 84484; 85025; 87077; 87086; 87186; 99285-25